=== PATIENT | male | born 1940 | race Caucasian/White ===

== ENCOUNTER 2019-10-03 05:15 | Inpatient (IN) ==
--- NOTE | 2019-09-21 13:56 | PAT Medication Instructions ---
Medication Instructions Date of Service September 21, 2019 Home Medications aspirin [Aspir-81] 81 mg PO DAILY calcium carbonate [Tums] 200 mg PO UD PRN ferrous sulfate [iron] 325 mg PO DAILY folic acid 1 mg PO DAILY omega 2-zrf-jmz-fish oil [Fish Oil] 1 cap PO DAILY STOP taking 2 weeks before surgery (or as soon as possible if surgery is within 2 weeks) omega 6-zyd-fka-fish oil [Fish Oil] 1 cap PO DAILY DO NOT take the morning of surgery calcium carbonate [Tums] 200 mg PO UD PRN ferrous sulfate [iron] 325 mg PO DAILY folic acid 1 mg PO DAILY Take morning of surgery With a small sip of water, OTHERWISE NOTHING TO EAT OR DRINK AFTER MIDNIGHT: aspirin [Aspir-81] 81 mg PO DAILY Other Notes If you have any questions please call us at [phone] or [phone] or [phone] or [phone]
--- NOTE | 2019-09-22 08:20 | History & Physical Report ---
Date of Service September 22, 2019 date of surgery: 10-03-19 Assessment & Plan (1) Arthritis of knee, left: Risks and benefits of procedure discussed in detail today, patient would like to proceed with a Left total knee replacement at [facility] as scheduled. will obtain medical clearance from Dr Merida prior to surgery as well as obtain PATs at [facility]. Will place on ASA 81mg po bid x 1 month post op, f/u 2 weeks post op for routine post-operative care and x-ray, sooner if having any problems. will make arrangements for OPPT at the time of discharge. At this point in time, has failed conservative measures and would like to proceed with surgical intervention. History of Present Illness Chief Complaint: left knee pain Primary Care Provider: Benjie Merida Mr Plascencia is a 79 year old male who complains of knee pain, presents for pre-op evaluation prior to a left total knee replacement at [facility]. He presents with pain and stiffness in the left knee. He states that the symptoms have been chronic non-traumatic. The symptoms occur constantly with intermittent worsening. Currently the patient states that the symptoms are moderate-severe and is described as aching, sharp and throbbing. The symptoms occur continuously. He rates his current pain as 4/10 and worst at 7/10. The symptoms are aggravated by ascending stairs, descending stairs, daily activities, driving, exercise, first steps while awake, kneeling, movement, repetitive activities, sleeping in any position, squatting, standing, walking, weight bearing and golfing. He is also experiencing limping, nighttime awakening, pain, stiffness, tenderness and weakness. Prior NSAIDs include Aleve and Ibuprofen. He has been treated with a corticosteroid injection in the past, has had previous therapy, and he has had arthroscopic surgery. 09/01/18 Dr. Craig performed Left knee arthroscopic partial medial and lateral meniscectomies. Allergies Allergy/AdvReac Type Severity Reaction Status Date / Time Penicillins Allergy Unknown SWELLING, Verified 09/15/19 11:25 REDNESS Home Medications Home Medications Medication Instructions Recorded Confirmed Type aspirin [Aspir-81] 81 mg PO DAILY 09/15/19 09/15/19 History calcium carbonate [Tums] 200 mg PO UD PRN 09/15/19 09/15/19 History ferrous sulfate [iron] 325 mg PO DAILY 09/15/19 09/15/19 History folic acid 1 mg PO DAILY 09/15/19 09/15/19 History omega 3-wno-sil-fish oil [Fish Oil] 1 cap PO DAILY 09/15/19 09/15/19 History Past Med/Surg History Medical History Acid reflux DIETARY DEPENDENT SOB (shortness of breath) on exertion Surgical History History of arthroscopy of knee X2 History of cardiac cath >15 YR AGO, D/T FAMILY HX - NO FINDINGS History of carpal tunnel surgery ? History of cervical spinal surgery History of colonoscopy History of eye surgery BILAT History of foot surgery R History of left shoulder replacement History of lumbar fusion History of right shoulder replacement History of thumb surgery History of transurethral resection of prostate X2 Family History Father Family history of cancer Family history of diabetes mellitus Family history of [place] (myocardial infarction) Father No problems noted. 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: No Beliefs That Will Affect Care: Buddhist Buddhist Beliefs: RASTAFARIAN Current Living Situation: Spouse Other Information That Helps Us Care for You: No Feels Safe at Home: Yes Smoking Status: Former smoker Tobacco Type: cigarettes and pipe ; Do You Dip or Chew Tobacco: No (HX OF, NONE CURRENT) ; Smoking End Date: 30 YRS AGO PIPE, 50 YRS AGO CIGARETTES ; Hx Alcohol Use: Yes Alcohol type: beer and wine Hx Substance Use: No Review of Systems Review of Systems: All systems reviewed & are unremarkable except as noted in HPI & below Constitutional: no fever, no chills and no sweats Respiratory: no cough and no dyspnea Cardiovascular: no chest pain, no dyspnea and no orthopnea Gastrointestinal: no abdominal pain, no nausea and no vomiting Musculoskeletal: as per Subjective / HPI Physical Exam Physical Exam: Ht: 5ft 7in Wt: 83.9kg BP: 126/66 Pulse: 72 Constitutional: WD/WN, vitals as above no acute distress Respiratory: normal respiratory effort, lungs clear to auscultation no respiratory distress, no labored breathing and does not use accessory muscles Cardiovascular: RRR, no murmur, no edema Gastrointestinal (Abdomen): normal bowel sounds, soft, nontender, no hepatosplenomegaly Musculoskeletal: Knee: + knee abnormal to inspection (left knee- ), + effusion (+1 effusion), + surgical incision (well healed portals), + limited ROM of knee (ROM 0/3/110), + knee ROM with crepitation, + joint line tenderness (medial joint line) and + Jackeline's sign positive; no deformity, no skin erythema, no ecchymosis, no valgus laxity, no varus laxity, anterior drawer test negative, Diego's sign negative and pivot shift test negative Results & Data Diagnostic Findings Left Knee X-rays shows degenerative changes to the left knee, greatest medial compartments and patellofemoral joint, showing joint space narrowing, osteophyte formation and subchondral sclerosis. no acute bony pathology noted.
--- NOTE | 2019-09-22 11:23 | Anesthesiology Consultation ---
Date of Service September 22, 2019 Assessment & Plan (1) Encounter for pre-operative examination: Chart Review Chart Review: Acceptable Risk for Surgery (pending surgeon-ordered PCP preop evaluation scheduled 09/26 (Dr. Merida)) and Patient seen in Pre Admission Testing Teaching & Discussion Pre-Anesthesia Teaching/Discussion Notes: Instructed NPO after midnight before surgery,except medications with 15 cc of water. Medication instructions pr ovided according to the PAT guidelines. History Surgery Operation Date: 10/03/19 12:55 Proposed Procedures p Left Total Knee Arthroplasty - Carlitos Weathers DO *Surgery date being changed to 10/03 per patient* Height/Weight Height: 5 ft 7 in Weight: 86.2 kg Allergies Allergy/AdvReac Type Severity Reaction Status Date / Time Penicillins Allergy Unknown SWELLING, Verified 09/15/19 11:25 REDNESS Medications Home Medications Medication Instructions Recorded Confirmed Last Taken aspirin [Aspir-81] 81 mg PO DAILY 09/15/19 09/15/19 Unknown calcium carbonate [Tums] 200 mg PO UD PRN 09/15/19 09/15/19 Unknown ferrous sulfate [iron] 325 mg PO DAILY 09/15/19 09/15/19 Unknown folic acid 1 mg PO DAILY 09/15/19 09/15/19 Unknown omega 0-sde-boy-fish oil [Fish Oil] 1 cap PO DAILY 09/15/19 09/15/19 Unknown Past Medical History Medical History Acid reflux diet related Anemia chronic; with baseline hgb in the 11-13 range per chart review Arthritis Hard of hearing Exercise / Class Metabolic Activity II 4-5 Yardwork/Stairs/Walk up hill Past Family History Family History Father Family history of cancer Family history of diabetes mellitus Family history of [place] (myocardial infarction) Father No problems noted. Brother Family history of cancer Family history of [place] (myocardial infarction) Mother Family history of stroke Past Surgical History Surgical History History of arthroscopy of knee LEFT X2 History of cardiac cath >15 YR AGO (D/T FAMILY HX)= NO STENTS History of carpal tunnel surgery UNSURE WHICH SIDE History of cervical spinal surgery History of colonoscopy History of eye surgery BILAT History of foot surgery R History of left shoulder replacement History of lumbar fusion History of right shoulder replacement History of thumb surgery History of transurethral resection of prostate X2 Past Anesthesia History No Hx of Anesthesia Complications and No Family Hx of Anesthesia Complications History of PONV No Hx of PONV and No Hx of Motion Sickness Social History Smoking Status: Former smoker tobacco type: cigarettes and pipe Do You Dip or Chew Tobacco: No (HX OF, NONE X 17 YEARS) Smoking End Date: 30 YRS AGO PIPE, 50 YRS AGO CIGARETTES Hx Alcohol Use: Yes Alcohol type: beer and wine alcohol intake frequency: 3 or more drinks per day (varies from day to day (zero to at most 6 beers/day);no morning/daytime drinking per patient*) Hx Substance Use: No substance use type: does not use Review of Systems Diet controlled reflux. Patient denies chest pain, shortness of breath, dyspnea on exertion, cough, wheezing, palpitations. Physical Exam Vital Signs VITALS BP 122/74 P 55 TEMP 98.2 SP02 95%RA RESP 16 PHYSICAL Mildly decreased cervical extension Full TMJ range of motion. TMD 3 finger breaths Mallampati Score 2 Dentition: intact, implants including upper front/molars Lungs: clear throughout to auscultation Cardiac: regular rate and rhythm, no murmurs noted Spine: normal Carotid arteries: negative bruit Extremities: no edema Testing Laboratory Results 09/22/19 11:41 09/22/19 11:41 PT 10.7 Seconds (9.0-12.0) 09/22/19 11:41 INR 1.0 (0.9-1.1) 09/22/19 11:41 APTT 28.3 Seconds (21.0-31.0) 09/22/19 11:41 Hemoglobin A1c 5.9 % (4.5-5.6) H 09/22/19 11:41 Urine Color Yellow 09/22/19 11:41 Urine Appearance Cloudy (Clear) A 09/22/19 11:41 Urine pH 8.0 (4.5-7.5) H 09/22/19 11:41 Ur Specific [place] 1.019 (1.000-1.030) 09/22/19 11:41 Urine Protein Negative (Negative) 09/22/19 11:41 Urine Glucose (UA) Negative (Negative) 09/22/19 11:41 Urine Ketones Negative (Negative) 09/22/19 11:41 Urine Nitrite Negative (Negative) 09/22/19 11:41 Ur Leukocyte Esterase Negative (Negative) 09/22/19 11:41 Urine WBC (Auto) 0 /hpf (0-5) 09/22/19 11:41 Urine RBC (Auto) 0-4 /hpf (0-4) 09/22/19 11:41 U Hyaline Cast (Auto) 0 /lpf (0-5) 09/22/19 11:41 U Epithel Cells (Auto) 0-5 /lpf (0-5) 09/22/19 11:41 Urine Bacteria (Auto) Negative (Negative) 09/22/19 11:41 Blood Type A Positive 09/22/19 11:41 Antibody Screen NEGATIVE 09/22/19 11:41 *Surgeon office made aware of low WBC/report being forwarded to PCP* Electrocardiogram Date: 09/22/19 SB at 52bpm. Otherwise "normal" ECG. Isolated lead III TWI. NS TWA AVF. Chest X-Ray Date: 09/22/19 Lung volumes are normal. Lungs are clear. There is no pneumothorax or pleural effusion. Cardiac size is at the upper limits of normal. Mediastinal contours are normal. There is no evidence for pulmonary edema. Bilateral shoulder arth roplasties and lumbar spine fusion hardware is partially imaged. IMPRESSION: No acute cardiopulmonary findings.
--- NOTE | 2019-09-22 12:08 | XRay Report ---
XR chest Pre-admission PA/Lat CLINICAL HISTORY: Preoperative evaluation. COMPARISON STUDY: Chest radiograph September 30, 2012. FINDINGS: Lung volumes are normal. Lungs are clear. There is no pneumothorax or pleural effusion. Car diac size is at the upper limits of normal. Mediastinal contours are normal. There is no evidence for pulmonary edema. Bilateral shoulder arthroplasties and lumbar spine fusion hardware is partially yadira ged. IMPRESSION: No acute cardiopulmonary findings. ACT 112: Negative or not required by law. Electronically signed by: Antonio Brooks M.D. 09/22/2019 12:07 PM
[2019-09-22 12:54] LABS: Basophils # (auto) 0.02 K/uL (0-0.2); Basophils % (auto) 0.5 %; Eosinophils # (auto) 0.46 K/uL (0-0.5); Eosinophils % (auto) 11.8 %; Hematocrit (blood only) 38.7 % (42-52); Hemoglobin 12.5 g/dL (14.0-18.0); Immature Granulocytes # (auto) 0.01 K/uL (0.00-0.02); Immature Granulocytes % (auto) 0.3 %; Lymphocytes % (auto) 38.5 %; Mean Corpuscular Hemoglobin 31.3 pg (25-34); Mean Corpuscular Hgb Conc 32.3 g/dL (32-36); Mean Corpuscular Volume 96.8 fL (80-100); Mean Platelet Volume 10.9 fL (7.4-10.4); Monocytes # (auto) 0.34 K/uL (0.11-0.59); Monocytes % (auto) 8.7 %; Neutrophils # (auto) 1.57 K/uL (1.4-6.5); Neutrophils % (auto) 40.2 %; Platelet Count 222 K/uL (130-400); RDW Coefficient of Variation 13.7 % (11.5-14.5)
[2019-09-22 12:58] LABS: Appearance Urine Cloudy (Clear); Bacteria Urine Automated Negative (Negative); Bilirubin Urine Negative (Negative); Blood Urine Negative (Negative); Cast Urine Automated 0 /lpf (0-5); Color Urine Yellow; Epithelial Cell Urine Auto 0-5 /lpf (0-5); Glucose Urine UA Negative (Negative); Ketones Urine Negative (Negative); Leukocyte Esterase Urine Negative (Negative); Nitrite Urine Negative (Negative); Protein Urine Negative (Negative); RBC Urine Automated 0-4 /hpf (0-4); Specific Gravity Urine 1.019 (1.000-1.030); Urobilinogen Urine Negative (Negative); WBC Urine Automated 0 /hpf (0-5)
[2019-09-22 13:01] LABS: Albumin Level 3.3 gm/dl (3.4-5.0); BUN Creatinine Ratio 25.5 (10-20); Calcium 8.9 mg/dl (8.5-10.1); Creatinine Clr Calc Pharmacy 84.6 ml/min; Est GFR (African American) 101.5; Est GFR (Non-African American) 87.6; Potassium 4.3 mmol/L (3.5-5.1)
[2019-09-22 13:05] LABS: Partial Thromboplastin Time 28.3 Seconds (21.0-31.0); Prothrombin Time 10.7 Seconds (9.0-12.0)
[2019-09-22 13:09] LABS: Estimated Average Glucose 123 mg/dl; Hemoglobin A1C 5.9 % (4.5-5.6)
--- NOTE | 2019-09-23 07:44 | Electrocardiogram Report ---
Test Reason : Blood Pressure : / mmHG Vent. Rate : 052 BPM Atrial Rate : 052 BPM P-R Int : 168 ms QRS Dur : 078 ms QT Int : 464 ms P-R-T Axes : 053 -08 -14 degrees QTc Int : 431 ms Sinus bradycardia Otherwise normal ECG When compared with ECG of 30-SEP-2012 16:31, T wave inversion now evident in Inferior leads Confirmed by Adrian Hirsch ([id number]) on 09/23/2019 7:43:50 AM Referred By: Carlitos Weathers Confirmed By:Fredy Hirsch
[2019-10-03] MEDS ORDERED: ACETAMINOPHEN 500 MG TAB PO SCH (06:00)
[2019-10-03] MEDS ORDERED: FAMOTIDINE 20 MG TAB PO SCH (06:00)
[2019-10-03] MEDS ORDERED: VANCOMYCIN HCL 1,250 MG in SODIUM CHLORIDE 0.9% 250 ML IV SCH (06:00)
[2019-10-03] MEDS ORDERED: dexAMETHasone 4 MG TAB PO SCH (06:00)
[2019-10-03] MEDS ORDERED: LR 500ML BOLUS, THEN 15ML/HR IV SCH (06:00)
[2019-10-03] MEDS ORDERED: TRANEXAMIC ACID 1,000 MG **IV Pre-op IV SCH (06:00)
[2019-10-03] MEDS ORDERED: METOCLOPRAMIDE HCL 10 MG TABLET PO SCH (06:00)
[2019-10-03] MEDS ORDERED: ROPIVACAINE 0.5% HCL/PF 150 MG, BUPIVACAINE 0.5% MPF 30 ML, EPINEPHrine 30MG/30ML (OR U... INFIL SCH (06:00)
[2019-10-03] MEDS ORDERED: CeleBREX 200 MG CAP PO SCH (06:00)
[2019-10-03] MEDS ORDERED: TRANEXAMIC ACID 1,000 MG **IV Intra-op IV SCH (06:00)
[2019-10-03] MEDS ORDERED: GABAPENTIN 300 MG CAP PO SCH (06:00)
[2019-10-03] MEDS ORDERED: BUPIVACAINE 0.5 % 5 MG/1 ML PF 10ML VIAL ONE (06:19)
[2019-10-03] MEDS ORDERED: ROPIVACAINE 0.5% 5 MG/ML 30 ML VIAL ONE (06:19)
[2019-10-03] MEDS ORDERED: DEXAMETHASONE SOD INJ 4 MG/ML VIAL ONE (06:51)
[2019-10-03] MEDS ORDERED: ONDANSETRON INJ 2 MG/ML 2 ML VIAL ONE (06:51)
[2019-10-03] MEDS ORDERED: fentaNYL citrate 100 MCG/2 ML VIAL ONE (06:51)
[2019-10-03] MEDS ORDERED: LIDOCAINE HCL 2% 2 ML VIAL/AMP(20MG/ML) INFIL ONE (06:51)
[2019-10-03] MEDS ORDERED: PROPOFOL IV EMULSION 10 MG/ML 20 ML VIAL IV ONE ×2 (06:51→08:58)
[2019-10-03] MEDS ORDERED: MIDAZOLAM HCL 1 MG/ML 2ML VIAL ONE (06:52)
[2019-10-03] MEDS ORDERED: BACITRACIN INJ 50,000 UNIT VIAL ONE (07:06)
[2019-10-03] MEDS ORDERED: ORTHO JOINT ANESTHETIC ONE (07:06)
--- NOTE | 2019-10-03 07:34 | History & Physical Bridge Note ---
Date of Service October 03, 2019 History & Physical Bridge Note I have examined the patient, reviewed the History & Physical and in the interval since the performance of the History & Physical I have noted the following changes of clinical significance: no changes noted
[2019-10-03] MEDS ORDERED: ePHEDrine sulfate 50 MG/ML AMP IV PRN (07:38)
[2019-10-03] MEDS ORDERED: ATROPINE SULFATE 0.1 MG/ML 10ML SYR IV PRN (07:38)
--- NOTE | 2019-10-03 08:45 | Operative Report ---
Post Operative Report Pre & Post Diagnosis Operation Date: 10/03/19 07:15 Pre-Op Diagnosis: LEFT KNEE OSTEOARTHRITIS Post-Op Diagnosis: LEFT KNEE OSTEOARTHRITIS I identified the patient and participated in the time-out.: Yes Procedure Operation Date: 10/03/19 07:15 Actual Procedures p Left Total Knee Arthroplasty(Left) utilizing [employer] journey through an en bloc total knee arthroplasty size 7 femur 6 tibia 9 polyethylene 35 oval patella- Carlitos Weathers DO Surgeon Carlitos Weathers DO [employer] Prospect[employer] [place] Estimated Blood Loss 5 Findings Consistent with Post-Op Diagnosis Patient presents with severe end-stage degenerative joint disease of the left knee nonresponse to conservative management clinic physical therapy anti- inflammatories activity modification intraoperative as noted was consistent with eburnated [id number] marginal osteophytes moderate to large effusion subchondral cystic changes exist without a fragment degenerative joint disease Specimens Bone and cartilage Drains Median bar Hemovac Complications none Disposition Accompanied Patient To Recovery: No Indications Patient presents severe in stage tricompartmental degenerative joint disease l eft knee Halfway X are to manage including physical therapy anti- inflammatories relative rest activity modification corticosteroid injections Visco supplementation patient presents the above intraoperative findings are noted. Description of Procedure After proper identification of the patientAfter proper prepping and draping of the left lower extremity anterior midline incision was made over the region of the extensor extensor mechanism after meticulous hemostasis was obtained and maintained in subcutaneous tissues a medial parapatellar incision was made The patella was subluxed lateralward the medial lateral gutter were cleaned from any hypertrophic synovitis and scar tissue of the distal femoral block was placed and the distal femoral osteotomy cut was made subsequently the chamfers anterior and posterior osteotomy cuts were made utilizing the 4-in-1 block the tibia was subsequently subluxed anteriorward medial and ateral meniscal remnants were excised in their entirety remnants of the anterior and posterior cruciate ligaments were excised in their entirety excellent exposure of the proximal tibia was obtained the tibial osteotomy guide was placed on the proximal tibial osteotomy cut was made once again the knee was irrigated with copious amounts of sterile saline solution the patella was subsequently everted lateralward thickened scar tissue around the patella was removed the patella was subsequently cut utilizing a freehand technique and was drilled prepared for final preparation and placement of patella socially flexion-extension gaps were checked and the equal and symmetric trials were placed to the appropriate femoral and tibial trials with poly-spacer being placed for equal flexion and extension gaps and full range of motion including extension to 0 and flexion to 140 the trial components after having been taken to recovery range of motion was subsequently removed meticulous hemostasis was obtained and maintained subsequently a knee block injection of joint cocktail including ropivacaine 0.5% 150 mg. Bupivacaine 0.5% epinephrine 1-200,030 mL's toradol 30 mg dexamethasone 4 mg ketamine 10 mg clonidine 100 micrograms normal saline solution 30 mg was infiltrated into the soft tissues of the posterior knee medial lateral gutters and periosteal synovium special attention was paid to protect neurovascular structures at all times subsequently trial components having been removed the knee was irrigated with sterile saline solution. debris was removed the proximal tibia was subsequently prepared and was made ready for the placement of the tibial component tibial component was also cemented and tamped into position the femoral component was subsequently placed and cemented in the position the patellar component was subsequently cemented in position because hemostasis once again obtained and maintained wound having been thoroughly irrigated with debridement and debridement lavage was performed as well as a medial parapatellar incision closed with #1 Vicryl in interrupted fashion subcutaneous was closed with #2 Vicryl skin was closed with skin clips. PA-C was necessary for prepping and drapping as well as wound closure of deep fascia Sub cutaneous tissue and skin and was necessary for the case. A sterile compressive dressing was placed patient was taken to recovery in stable condition of report dictated by Jasiel I attest to the content of the Intraoperative Record and any orders documented therein. Any exceptions are noted below. I attest to the content of the Intraoperative Record and any orders documented therein. Any exceptions are noted below.
--- NOTE | 2019-10-03 10:02 | XRay Report ---
XR knee LT 1 or 2V routine CLINICAL HISTORY: 79 years-old Male presenting with Surgical Post Op. TECHNIQUE: Frontal and crosstable lateral views of the left knee were obtained. COMPARISON: None. FINDINGS: Postsurgical changes of total left knee arthroplasty with patellar resurfacing. A surgical drain is i n place. Expected intra-articular and soft tissue emphysema. No malalignment. No periprosthetic fract ure or lucency. IMPRESSION: Expected postsurgical appearance status post total left knee arthroplasty with patellar resurfacing. ACT 112: Negative or not required by law. Electronically signed by: Barry Tierney M.D. 10/03/2019 10:01 AM
--- NOTE | 2019-10-03 11:39 | Anesthesiology Progress Note ---
Date of Service October 03, 2019 Anesthesia Post Procedure Vital Signs Vital Signs: Temp Pulse Pulse Resp BP Pulse Ox 10/03/19 11:20 36.6 C 51 L 13 134/77 99 10/03/19 11:10 36.6 C 50 L 12 125/79 99 10/03/19 11:00 52 L 12 122/75 99 10/03/19 10:50 50 L 12 119/79 99 10/03/19 10:40 61 13 128/77 100 10/03/19 10:30 61 13 124/81 99 10/03/19 10:20 49 L 16 121/74 100 10/03/19 10:10 55 L 12 126/72 99 10/03/19 10:00 63 13 125/81 99 10/03/19 09:50 62 16 126/81 97 10/03/19 09:40 59 L 19 127/71 100 10/03/19 09:33 36.5 C 67 18 120/67 100 10/03/19 05:53 37.1 C 59 L 18 128/78 97 Transfer of Care Handoff Completed per policy Notes Mental Status: alert / awake / arousable and participated in evaluation Patient Amnestic to Procedure: Yes Nausea / Vomiting: adequately controlled Pain: adequately controlled Airway Patency, RR, SpO2: stable & adequate BP & HR: stable & adequate Hydration State: stable & adequate Neuraxial Anesthesia: was administered and sensory block is resolving Anesthetic Complications: no major complications apparent
[2019-10-03] MEDS ORDERED: bisacodyL 10 MG SUPP PR PRN (11:45)
[2019-10-03] MEDS ORDERED: CALCIUM CARBONATE 500 MG CHEWABLE TAB PO PRN (11:45)
[2019-10-03] MEDS ORDERED: NALOXONE HCL 0.4 MG/1 ML VIAL/CARP IV PRN (11:45)
[2019-10-03] MEDS ORDERED: HYDROmorphone INJ 1 MG/ML SYRINGE IV PRN (11:45)
[2019-10-03] MEDS ORDERED: ALUMINUM/MAGNESIUM SUSP 30 ML UDC PO PRN (11:45)
[2019-10-03] MEDS ORDERED: METOCLOPRAMIDE HCL INJ 5 MG/ML 2 ML VIAL IV PRN (11:45)
[2019-10-03] MEDS ORDERED: MAGNESIUM HYDROXIDE SUSP 30 ML UDC PO PRN (11:45)
[2019-10-03] MEDS ORDERED: SODIUM CHLORIDE 0.9% 1000ML 1,000 ML IV SCH (11:45)
[2019-10-03] MEDS ORDERED: ONDANSETRON INJ 2 MG/ML 2 ML VIAL IV PRN (11:45)
[2019-10-03] MEDS: ACETAMINOPHEN 500 MG TAB PO SCH ×2 (13:14→20:52)
[2019-10-03] MEDS: KETOROLAC TROMETHAMINE 15 MG/ML VIAL IV SCH ×2 (13:14→20:51)
[2019-10-03] MEDS: CLINDAMYCIN 600 MG in DEXTROSE 5% 50 ML IV SCH ×2 (15:38→23:31)
[2019-10-03] MEDS: ASPIRIN 81 MG ECTAB PO SCH (20:52)
[2019-10-03] MEDS: SENNA 8.6 MG TAB PO SCH (20:53)
[2019-10-03] MEDS: DOCUSATE SODIUM 100 MG CAP PO SCH (20:53)
[2019-10-04] MEDS: KETOROLAC TROMETHAMINE 15 MG/ML VIAL IV SCH ×2 (01:26→09:51)
[2019-10-04] MEDS: ACETAMINOPHEN 500 MG TAB PO SCH ×3 (05:52→20:46)
[2019-10-04 06:26] LABS: Hematocrit (blood only) 34.5 % (42-52); Hemoglobin 11.3 g/dL (14.0-18.0); Mean Corpuscular Hemoglobin 31.1 pg (25-34); Mean Corpuscular Hgb Conc 32.8 g/dL (32-36); Mean Platelet Volume 10.3 fL (7.4-10.4); Platelet Count 236 K/uL (130-400); RDW Coefficient of Variation 13.1 % (11.5-14.5); RDW Standard Deviation 45.6 fL (36.4-46.3); Red Blood Count 3.63 M/uL (4.7-6.1); White Blood Count 9.59 K/uL (4.8-10.8)
[2019-10-04 06:58] LABS: BUN Creatinine Ratio 28.6 (10-20); Calcium 9.1 mg/dl (8.5-10.1); Creatinine Clr Calc Pharmacy 81.3 ml/min; Est GFR (Non-African American) 87.1; Potassium 4.5 mmol/L (3.5-5.1)
--- NOTE | 2019-10-04 07:51 | Anesthesiology Progress Note ---
Date of Service October 04, 2019 Anesthesia Post Procedure Vital Signs Vital Signs: Temp Pulse Pulse Pulse Resp BP Pulse Ox 10/04/19 07:13 36.4 C L 50 L 16 130/72 99 10/04/19 03:40 36.5 C 48 L 16 124/57 L 97 10/03/19 22:52 36.5 C 57 L 16 106/68 99 10/03/19 20:50 36.4 C L 53 L 16 111/72 98 10/03/19 15:18 36.3 C L 58 L 16 146/84 H 97 10/03/19 14:35 36.3 C L 48 L 18 134/80 97 10/03/19 13:28 36.5 C 54 L 17 137/82 100 10/03/19 12:26 36.3 C L 46 L 17 115/73 100 10/03/19 12:00 36.4 C L 51 L 16 132/79 99 10/03/19 11:30 36.5 C 54 L 16 132/77 100 10/03/19 11:20 36.6 C 51 L 13 134/77 99 10/03/19 11:10 36.6 C 50 L 12 125/79 99 10/03/19 11:00 52 L 12 122/75 99 10/03/19 10:50 50 L 12 119/79 99 10/03/19 10:40 61 13 128/77 100 10/03/19 10:30 61 13 124/81 99 10/03/19 10:20 49 L 16 121/74 100 10/03/19 10:10 55 L 12 126/72 99 10/03/19 10:00 63 13 125/81 99 10/03/19 09:50 62 16 126/81 97 10/03/19 09:40 59 L 19 127/71 100 10/03/19 09:33 36.5 C 67 18 120/67 100 Notes Mental Status: alert / awake / arousable and participated in evaluation Patient Amnestic to Procedure: Yes Nausea / Vomiting: adequately controlled Pain: adequately controlled Airway Patency, RR, SpO2: stable & adequate BP & HR: stable & adequate Hydration State: stable & adequate Neuraxial Anesthesia: was administered and sensory block resolved Anesthetic Complications: no major complications apparent
[2019-10-04] MEDS: FERROUS SULFATE 325 MG TAB PO SCH (09:52)
[2019-10-04] MEDS: MULTIVITAMIN TAB PO SCH (09:52)
[2019-10-04] MEDS: DOCUSATE SODIUM 100 MG CAP PO SCH ×2 (09:52→20:45)
[2019-10-04] MEDS: ASPIRIN 81 MG ECTAB PO SCH ×2 (09:52→20:45)
[2019-10-04] MEDS: FOLIC ACID 1 MG TAB PO SCH (09:52)
--- NOTE | 2019-10-04 09:53 | Orthopedic Progress Note ---
Date of Service October 04, 2019 Assessment & Plan (1) History of total left knee replacement: POD #1 s/p Left TKA pt/ot dvt proph with SUPRIYA/SCD/ASA plan for d/c home with OPPT, will recheck after PT Today, hemovac last drained at 125cc/8 hr Subjective POD #1 s/p Left TKA Review of Systems Constitutional: no fever, no chills and no sweats Respiratory: no cough and no dyspnea Cardiovascular: no chest pain and no dyspnea Gastrointestinal: no abdominal pain, no nausea and no vomiting Physical Exam Physical Exam: Vital Signs Temp 36.4 C L 10/04/19 07:13 Pulse 50 L 10/04/19 07:13 Resp 16 10/04/19 07:13 BP 130/72 10/04/19 07:13 Pulse Ox 99 10/04/19 07:13 Intake & Output 10/03/19 10/04/19 10/04/19 18:59 06:59 18:59 Intake Total 2729 / 3524.667 795.667 / 3524.667 Output Total 991 / 1391 400 / 1391 Balance 1738 / 2133.667 395.667 / 2133.667 Weight 84.8 kg Intake: IV 1229 / 2024.667 795.667 / 2024.667 Cleocin 600 mg In D5w 50 ml @ 54 / 108 54 / 108 100 mls/hr IV Q8H KATHERINE Rx#: [id number] Lr 1,000 ml @ 15 mls/hr IV . 700 / 700 Q24H KATHERINE Rx#:[id number] Nss 1000ML 1,0 00 ml @ 100 mls/ 741.667 / 741.667 hr IV .Q10H SC H Rx#:[id number] TRANEXAMIC ACI D / 0.7% NACL 1, 200 / 200 000 mg In 100 ml @ 600 mls/hr IV TODAY@0600 [facility] Rx#:[id number] Vancomycin HCl 1,250 mg In Nss 275 / 275 250 ml @ 250 m ls/hr IV PREOP KATHERINE Rx#:[id number] IV Perioperative 1500 / 1500 Output: Urine 950 / 950 Estimated Blood Loss 5 / 5 Drain Output 36 / 436 400 / 436 Left Knee Hemo vac #1 36 / 436 400 / 436 Other: # Unmeasured Voi ds 1 2 Constitutional: WD/WN, vitals as above no acute distress Musculoskeletal: Left Leg: NVDI, calf SNT, negative bigg sign. DP palpable, able to wiggle toes/ankle movement without difficulty. dressing clean dry and intact. Results & Data Vital Signs (Past 12 Hours) Vital Signs Temp Pulse Resp BP Pulse Ox 10/04/19 07:13 36.4 C L 50 L 16 130/72 99 10/04/19 03:40 36.5 C 48 L 16 124/57 L 97 10/03/19 22:52 36.5 C 57 L 16 106/68 99 Laboratory Results Laboratory Results WBC 9.59 K/uL (4.8-10.8) 10/04/19 05:46 RBC 3.63 M/uL (4.7-6.1) L 10/04/19 05:46 Hgb 11.3 g/dL (14.0-18.0) L 10/04/19 05:46 Hct 34.5 % (42-52) L 10/04/19 05:46 MCV 95.0 fL (80-100) 10/04/19 05:46 MCH 31.1 pg (25-34) 10/04/19 05:46 MCHC 32.8 g/dL (32-36) 10/04/19 05:46 RDW Std Deviation 45.6 fL (36.4-46.3) 10/04/19 05:46 RDW Coeff of Brenda 13.1 % (11.5-14.5) 10/04/19 05:46 Plt Count 236 K/uL (130-400) 10/04/19 05:46 MPV 10.3 fL (7.4-10.4) 10/04/19 05:46 Immature Gran % (Auto) 0.3 % 09/22/19 11:41 Neut % (Auto) 40.2 % 09/22/19 11:41 Lymph % (Auto) 38.5 % 09/22/19 11:41 [place] % (Auto) 8.7 % 09/22/19 11:41 Eos % (Auto) 11.8 % 09/22/19 11:41 Baso % (Auto) 0.5 % 09/22/19 11:41 Immature Gran # (Auto) 0.01 K/uL (0.00-0.02) 09/22/19 11:41 Neut # (Auto) 1.57 K/uL (1.4-6.5) 09/22/19 11:41 Lymph # (Auto) 1.50 K/uL (1.2-3.4) 09/22/19 11:41 [place] # (Auto) 0.34 K/uL (0.11-0.59) 09/22/19 11:41 Eos # (Auto) 0.46 K/uL (0-0.5) 09/22/19 11:41 Baso # (Auto) 0.02 K/uL (0-0.2) 09/22/19 11:41 PT 10.7 Seconds (9.0-12.0) 09/22/19 11:41 INR 1.0 (0.9-1.1) 09/22/19 11:41 APTT 28.3 Seconds (21.0-31.0) 09/22/19 11:41 PTT Ratio 1.0 09/22/19 11:41 Sodium 139 mmol/L (136-145) 10/04/19 05:46 Potassium 4.5 mmol/L (3.5-5.1) 10/04/19 05:46 Chloride 107 mmol/L (98-107) 10/04/19 05:46 Carbon Dioxide 29 mmol/L (21-32) 10/04/19 05:46 Anion Gap 3.0 (3-11) 10/04/19 05:46 BUN 21 mg/dl (7-18) H 10/04/19 05:46 Creatinine 0.74 mg/dl (0.6-1.4) 10/04/19 05:46 Est Cr Clr Drug Dosing 81.3 ml/min 10/04/19 05:46 Est GFR ( Amer) 101.0 10/04/19 05:46 Est GFR (Non-Af Amer) 87.1 10/04/19 05:46 BUN/Creatinine Ratio 28.6 (10-20) H 10/04/19 05:46 Glucose 131 mg/dl (70-99) H 10/04/19 05:46 Estimat Average Glucose 123 mg/dl 09/22/19 11:41 Hemoglobin A1c 5.9 % (4.5-5.6) H 09/22/19 11:41 Calcium 9.1 mg/dl (8.5-10.1) 10/04/19 05:46 Albumin 3.3 gm/dl (3.4-5.0) L 09/22/19 11:41 Urine Color Yellow 09/22/19 11:41 Urine Appearance Cloudy (Clear) A 09/22/19 11:41 Urine pH 8.0 (4.5-7.5) H 09/22/19 11:41 Ur Specific [place] 1.019 (1.000-1.030) 09/22/19 11:41 Urine Protein Negative (Negative) 09/22/19 11:41 Urine Glucose (UA) Negative (Negative) 09/22/19 11:41 Urine Ketones Negative (Negative) 09/22/19 11:41 Urine Blood Negative (Negative) 09/22/19 11:41 Urine Nitrite Negative (Negative) 09/22/19 11:41 Urine Bilirubin Negative (Negative) 09/22/19 11:41 Urine Urobilinogen Negative (Negative) 09/22/19 11:41 Ur Leukocyte Esterase Negative (Negative) 09/22/19 11:41 Urine WBC (Auto) 0 /hpf (0-5) 09/22/19 11:41 Urine RBC (Auto) 0-4 /hpf (0-4) 09/22/19 11:41 U Hyaline Cast (Auto) 0 /lpf (0-5) 09/22/19 11:41 U Epithel Cells (Auto) 0-5 /lpf (0-5) 09/22/19 11:41 Urine Bacteria (Auto) Negative (Negative) 09/22/19 11:41 Blood Type A Positive 09/22/19 11:41 Antibody Screen NEGATIVE 09/22/19 11:41 Diagnostic Findings XR knee LT 1 or 2V routine CLINICAL HISTORY: 79 years-old Male presenting with Surgical Post Op. TECHNIQUE: Frontal and crosstable lateral views of the left knee were obtained. COMPARISON: None. FINDINGS: Postsurgical changes of total left knee arthroplasty with patellar resurfacing. A surgical drain is in place. Expected intra-articular and soft tissue emphysema. No malalignment. No periprosthetic fracture or lucency. IMPRESSION: Expected postsurgical appearance status post total left knee arthroplasty with patellar resurfacing.
[2019-10-04] MEDS: SENNA 8.6 MG TAB PO SCH (20:45)
[2019-10-04] MEDS: CeleBREX 200 MG CAP PO SCH (20:45)
[2019-10-05] MEDS: OXYCODONE HCL IR 5 MG TAB (IMMEDIATE RELEASE) PO PRN ×2 (00:49→07:54)
[2019-10-05] MEDS: ACETAMINOPHEN 500 MG TAB PO SCH (05:46)
[2019-10-05] MEDS: CeleBREX 200 MG CAP PO SCH (08:47)
[2019-10-05] MEDS: DOCUSATE SODIUM 100 MG CAP PO SCH (08:47)
[2019-10-05] MEDS: MULTIVITAMIN TAB PO SCH (08:47)
[2019-10-05] MEDS: FOLIC ACID 1 MG TAB PO SCH (08:47)
[2019-10-05] MEDS: FERROUS SULFATE 325 MG TAB PO SCH (08:47)
[2019-10-05] MEDS: ASPIRIN 81 MG ECTAB PO SCH (08:47)
--- NOTE | 2019-10-05 09:33 | Orthopedic Progress Note ---
Date of Service October 05, 2019 Assessment & Plan (1) History of total left knee replacement: POD #2 s/p Left TKA pt/ot dvt proph with SUPRIYA/SCD/ASA plan for d/c home with OPPT today Subjective POD #1 s/p Left TKA. Doing well, wishes to go home today. No complaints. Pain controlled Review of Systems Review of Systems: All systems reviewed & are unremarkable except as noted in HPI & below Physical Exam Physical Exam: Dressing is c/d/i, no calf tenderness, good dorsiflexion. Distally n/v status and sensation intact. Dressing to hemovac site intact. Results & Data Vital Signs (Past 12 Hours) Vital Signs Temp Pulse Resp BP Pulse Ox 10/05/19 07:29 36.4 C L 64 16 150/69 H 97 10/04/19 23:16 36.9 C 63 16 114/70 100
--- NOTE | 2019-10-05 18:46 | Discharge Summary ---
Date of Service date of discharge: October 05, 2019 date of admission: 10-03-19 Admission HPI Per Admitting Provider Mr Plascencia is a 79 year old male who complains of knee pain, presents for pre-op evaluation prior to a left total knee replacement at [facility]. He presents with pain and stiffness in the left knee. He states that the symptoms have been chronic non-traumatic. The symptoms occur constantly with intermittent worsening. Currently the patient states that the symptoms are moderate-severe and is described as aching, sharp and throbbing. The symptoms occur continuously. He rates his current pain as 4/10 and worst at 7/10. The symptoms are aggravated by ascending stairs, descending stairs, daily activities, driving, exercise, first steps while awake, kneeling, movement, repetitive activities, sleeping in any position, squatting, standing, walking, weight bearing and golfing. He is also experiencing limping, nighttime awakening, pain, stiffness, tenderness and weakness. Prior NSAIDs include Aleve and Ibuprofen. He has been treated with a corticosteroid injection in the past, has had previous therapy, and he has had arthroscopic surgery. 09/01/18 Dr. Craig performed Left knee arthroscopic partial medial and lateral meniscectomies. Principal Diagnosis left knee arthritis Discharge Exam Vital Signs Temp 36.4 C L 10/05/19 07:29 Pulse 64 10/05/19 07:29 Resp 16 10/05/19 07:29 BP 150/69 H 10/05/19 07:29 Pulse Ox 97 10/05/19 07:29 Intake & Output 10/04/19 10/05/19 10/05/19 18:59 06:59 18:59 Intake Total 275 / 625 350 / 625 Output Total 325 / 1125 800 / 1125 Balance -50 / -500 -450 / -500 Weight 84.8 kg Intake: Oral 275 / 625 350 / 625 Output: Urine 600 / 600 Drain Output 325 / 525 200 / 525 Left Knee Hemovac #1 325 / 525 200 / 525 Other: # Unmeasured Voids 2 Constitutional WD/WN, vitals as above no acute distress Musculoskeletal left knee: NVDI, calf SNT, negative bigg sign. DP palpable, able to wiggle toes/ankle movement without difficulty. dressing clean dry and intact. expected post-operative bruising noted. Discharge Data Allergies Allergy/AdvReac Type Severity Reaction Status Date / Time Penicillins Allergy Unknown SWELLING, Verified 10/03/19 05:50 REDNESS Consultations 10/03/19 11:45 Consult Case Management - Discharge Planning Routine Procedures Performed Operation Date: 10/03/19 07:15 Actual Procedures p Left Total Knee Arthroplasty(Left) - Carlitos Weathers DO Ordered Studies 10/03/19 05:00 US - OR guided needle placemen Routine Hospital Course (1) History of total left knee replacement: POD #2 s/p Left TKA pt/ot dvt proph with SUPRIYA/SCD/ASA plan for d/c home with OPPT today Total Time Total Time Spent Total Time Spent (In Minutes): 20 Total Time Includes: Examination of the Patient, Discharge Planning and Medication Reconciliation Discharge Plan Discharge Items Patient Disposition: Home - Self-Care Reason For Visit: LEFT KNEE OSTEOARTHRITIS Discharge Diagnosis: Left Total knee replacement Activity: Per Instructions section Lifting: Wait until after follow-up appointment Weightbearing: Full weightbearing and Left weightbearing Non-emergency contact: Surgeon Call non-emergency contact if: you have any medication questions, your temperature is above 101, your wound has increased redness, your wound has increased drainage and your wound pain has increased Follow-up/Referrals: Benjie Merida DO [Primary Care Provider] - Diet: Regular Addtl Attending Provider Instructions: ACTIVITY RECOMMENDATIONS: SELF CARE INSTRUCTIONS AFTER TOTAL KNEE REPLACEMENT A. You may need to continue a physical therapy program after discharge from the hospital. There are several options available to you. Your doctor will assist you in selecting the best one for you. 1. An out-patient facility 2 to 3 times a week for therapy or home therapy. 2. Continue working on all exercises taught to you in the hospital. Your goals should be to increase bending of your knee to 90 degrees and beyond and to fully straighten your knee. B. You may progress at your own pace from walking with a walker or crutches to a cane; then to no assistive devices. C. Make walking a part of your daily routine. Be up as much as comfortable with rest periods throughout the day. Rest with leg elevation is very important. Use the ice wrap frequently for the first 3-4 weeks. D. There are no restrictions on activities. You may ride in a car, shop, participate in test fixture designer and all social activities. E. Wear the long elastic stockings (SUPRIYA hose) 20 hours a day for 2 weeks after surgery. They can be removed several times a day for laundering and for a bath. F. You may shower, no tub baths until cleared by your doctor. SPECIAL CARE INSTRUCTIONS: VERY IMPORTANT TO READ AND REVIEW A. There are a few signs you need to watch for after you are home. Call [facility] if you notice any of the followin. Increased severe knee pain. Some pain is expected especially when you exercise. 2. Increased swelling in your leg or knee; pain or swelling of the calf muscle in either lower leg. 3. Any fluid drainage from the incision. 4. Shortness of breath or chest pain. B. Please call [facility] at if you have any concerns or questions about your operation or recovery. The doctor or his nurse will return your call promptly. C. You must take antibiotics before dental work, bladder, bowel or other surgery. Your doctor will provide you with a permanent care to carry describing this precaution. IMPORTANT: * REMEMBER TO TAKE ASPIRIN, 81 MG, TWICE DAILY FOR 4 WEEKS UNLESS OTHERWISE DIRECTED. THIS IS YOUR BLOOD THINNER. * HIGH RISK PATIENTS MAY BE PRESCRIBED A STRONGER BLOOD THINNER. THIS WILL BE PROVIDED AT DISCHARGE. * CALL IF INCREASED PAIN, REDNESS, DRAINAGE OR FEVER GREATER THAT 101. * WEAR SUPRIYA HOSE 20 HOURS PER DAY FOR 2 WEEKS. * DERMABOND Prineo- This is a mesh tape dressing that is covered with glue. It should remain in place until the incision is properly healed, usually 10-14 d ays. This dressing is designed to naturally slough off. You may trim the excess mesh tape as it peels off. Incision may be briefly wet in a shower. Dry immediately by blotting with a clean, dry towel. Do not bath or swim until instructed by your doctor. Do not scratch, rub, or pick at the dressing. Do not apply any topical ointments or lotions until dressing is completely removed and/or instructed by your doctor. There may be a small piece of suture material at one end of your incision. Do not pull or trim this. If it is bothersome or catching on clothing, you may cover it with a band-aid. IF INCISION IS LEAKING THROUGH DRESSING, CALL THE OFFICE . FOLLOW UP VISIT: If appointment is not already scheduled: Please call [facility] to make a follow-up appointment for 2 weeks after your surgery at . Pending Studies at Discharge: No Stand-Alone Forms: My [facility], Opioid Pain Management, Smoking Cessation Medications and DC Order Prescriptions: New celecoxib [Celebrex] 200 mg Capsule 200 mg PO BID 30 Days Qty: 60 RF: 0 aspirin [Ecotrin Low Strength] 81 mg Tablet,Delayed Release (Dr/Ec) 81 mg PO BID 30 Days Qty: 60 RF: 0 acetaminophen 500 mg Tablet 1,000 mg PO Q8 14 Days Qty: 84 RF: 0 oxycodone 5 mg Tablet 5 - 10 mg PO Q6H PRN (Reason: pain) Qty: 30 RF: 0 docusate sodium 100 mg Capsule 100 mg PO BID 10 Days Qty: 20 RF: 0 clindamycin HCl 300 mg capsule 300 mg PO TID 7 Days Qty: 21 RF: 0 Continued ferrous sulfate [iron] 325 mg (65 mg iron) Tablet 325 mg PO DAILY RF: 0 folic acid 1 mg Tablet 1 mg PO DAILY RF: 0 omega 3-qoq-ozt-fish oil [Fish Oil] 1,000 mg (120 mg-180 mg) Capsule 1 cap PO DAILY RF: 0 calcium carbonate [Tums] 200 mg calcium (500 mg) Tablet,Chewable 200 mg PO UD PRN (Reason: Acid Reflux) RF: 0 Discontinued aspirin [Aspir-81] 81 mg Tablet,Delayed Release (Dr/Ec) 81 mg PO DAILY RF: 0 Discharge Orders: Discharge Order (Routine); Ordered 10/05/19 Ordered By: King Winkler Admission Data Admit Date/Time: 10/03/19 09:47 Attending Provider: Carlitos Weathers Admit Provider: Carlitos Weathers Primary Care Provider: Benjie Merida Other Interventions: Discharge Summary Assessment (RN) Last Done: 10/05/19 10:05 DC Date/Time DO NOT enter until pt leaves facility: 10/05/19 11:32
== END 2019-10-05 11:32 | disposition home or self-care (01) | DRG 470 ==
LOC: 3E 05:15 → ASU 05:15

== ENCOUNTER 2019-12-07 07:30 | Inpatient (IN) ==
--- NOTE | 2019-12-07 10:06 | History & Physical Report ---
Date of Service December 07, 2019 date of surgery: 12-07-19 Assessment & Plan (1) History of total left knee replacement: knee aspirated today in the office and is concerning for infection, will be direct admitted to [facility] for I&D and poly exchange by Dr Arce later today. keep NPO, will obtain labs, consult ID for their recommendations. History of Present Illness Chief Complaint: left knee infection Primary Care Provider: Benjie Fall is 79 year old male presented to office today with possible left knee infection, he is s/p left total knee replacement in September 2019. he originally progressed well after his surgery, however started to develop swelling and increased pain about 1 week ago, he was seen by his PCP yesterday and labs were drawn, his WBC was 11.15, ESR of 88. was seen by dr arce earlier today and knee aspirated showing thick purulent fluid. it was recommended that patient be direct admitted to [facility] for I&D and poly exchange of his left knee. Allergies Allergy/AdvReac Type Severity Reaction Status Date / Time Penicillins Allergy Unknown SWELLING, Verified 10/03/19 05:50 REDNESS Home Medications Home Medications Medication Instructions Recorded Confirmed Type calcium carbonate [Tums] 200 mg PO UD PRN 09/15/19 10/03/19 History ferrous sulfate [iron] 325 mg PO DAILY 09/15/19 10/03/19 History folic acid 1 mg PO DAILY 09/15/19 10/03/19 History omega 9-xui-awg-fish oil [Fish Oil] 1 cap PO DAILY 09/15/19 10/03/19 History oxycodone 5 - 10 mg PO Q6H PRN #30 tab 10/04/19 Rx Past Med/Surg History Medical History Acid reflux diet related Anemia chronic; with baseline hgb in the 11-13 range per chart review Arthritis Hard of hearing Surgical History History of arthroscopy of knee LEFT X2 History of cardiac cath >15 YR AGO (D/T FAMILY HX)= NO STENTS History of carpal tunnel surgery UNSURE WHICH SIDE History of cervical spinal surgery History of colonoscopy History of eye surgery BILAT History of foot surgery R History of left shoulder replacement History of lumbar fusion History of right shoulder replacement History of thumb surgery History of transurethral resection of prostate X2 Family History Father Family history of cancer Family history of diabetes mellitus Family history of [place] (myocardial infarction) Father No problems noted. Brother Family history of cancer Family history of [place] (myocardial infarction) Mother Family history of stroke Social History Preferred Language: Italian Communication Ability: Effective Server Programmer Required: No Beliefs That Will Affect Care: Congregational Congregational Beliefs: SIKHISM marital status: Current Living Situation: Spouse Feels Safe at Home: Yes Smoking Status: Former smoker Tobacco Type: cigarettes and pipe ; Hx Alcohol Use: Yes Alcohol type: beer and wine Hx Substance Use: No Review of Systems Review of Systems: All systems reviewed & are unremarkable except as noted in HPI & below Constitutional: no body aches and no fatigue Respiratory: no cough and no dyspnea Cardiovascular: no chest pain, no dyspnea and no orthopnea Gastrointestinal: no nausea and no vomiting Physical Exam Constitutional: WD/WN, vitals as above no acute distress Respiratory: normal respiratory effort, lungs clear to auscultation Cardiovascular: RRR, no murmur, no edema Musculoskeletal: left knee: well healed surgical incision, +2 effusion, ROM 0/3/95, mild erythema noted. calf SNT, neurovascular intact distally. no pain with gentle PROM, pain increased with end range active ROM. Results & Data Laboratory Results WBC: 11.15 ESR: 88
[2019-12-07] MEDS ORDERED: NALOXONE HCL 0.4 MG/1 ML VIAL/CARP IV PRN ×2 (10:14→15:38)
[2019-12-07] MEDS ORDERED: D5W AND 1/2NSS 1,000 ML IV SCH (10:15)
--- NOTE | 2019-12-07 10:39 | Anesthesiology Consultation ---
Date of Service December 07, 2019 Assessment & Plan (1) Encounter for pre-operative examination: Chart Review Chart Review: Acceptable Risk for Surgery Consults Requested none ASA ASA3 Proposed Anesthesia Anesthesia Type: General Risk / Benefits Reviewed With: PT / POA / Parent / Guardian, Accepts Plan and Informed Consent Obtained History Surgery Operation Date: 12/07/19 07:30 Proposed Procedures p Left Knee Incision and Drainage, Poly Exchange - Carlitos Weathers DO Allergies Allergy/AdvReac Type Severity Reaction Status Date / Time Penicillins Allergy Unknown SWELLING, Verified 10/03/19 05:50 REDNESS Medications Home Medications Medication Instructions Recorded Confirmed Last Taken calcium carbonate [Tums] 200 mg PO UD PRN 09/15/19 10/03/19 10/01/19 ferrous sulfate [iron] 325 mg PO DAILY 09/15/19 10/03/19 09/26/19 folic acid 1 mg PO DAILY 09/15/19 10/03/19 09/26/19 omega 7-bgk-pig-fish oil [Fish Oil] 1 cap PO DAILY 09/15/19 10/03/19 09/26/19 oxycodone 5 - 10 mg PO Q6H PRN #30 tab 10/04/19 Unknown NPO Date Last Intake of Fluids: 12/07/19 Time Last Intake of Fluids: 00:00 Date Last Intake of Solids: 12/07/19 Time Last Intake of Solids: 00:00 Past Medical History Medical History Acid reflux diet related Anemia chronic; with baseline hgb in the 11-13 range per chart review Arthritis Hard of hearing Exercise / Class Metabolic Activity II 4-5 Yardwork/Stairs/Walk up hill Past Family History Family History Father Family history of cancer Family history of diabetes mellitus Family history of [place] (myocardial infarction) Father No problems noted. Brother Family history of cancer Family history of [place] (myocardial infarction) Mother Family history of stroke Past Surgical History Surgical History History of arthroscopy of knee LEFT X2 History of cardiac cath >15 YR AGO (D/T FAMILY HX)= NO STENTS History of carpal tunnel surgery UNSURE WHICH SIDE History of cervical spinal surgery History of colonoscopy History of eye surgery BILAT History of foot surgery R History of left shoulder replacement History of lumbar fusion History of right shoulder replacement History of thumb surgery History of transurethral resection of prostate X2 Past Anesthesia History No Hx of Anesthesia Complications and No Family Hx of Anesthesia Complications History of PONV No Hx of PONV and No Hx of Motion Sickness Social History Smoking Status: Former smoker tobacco type: cigarettes and pipe Hx Alcohol Use: Yes Alcohol type: beer and wine alcohol intake frequency: 3 or more drinks per day (varies from day to day (zero to at most 6 beers/day);no morning/daytime drinking per patient*) Hx Substance Use: No substance use type: does not use Physical Exam Vital Signs Last Vital Signs Temp 100.8 F H 12/07/19 10:30 Resp 18 12/07/19 10:30 BP 125/74 12/07/19 10:30 Pulse Ox 96 12/07/19 10:30 ENMT Mouth: no dentition abnormality Thyromental Distance: > or= 3.5 Finger Breadths Mallampati Class: II Neck normal visual inspection Respiratory normal respiratory effort Auscultation: lungs clear to auscultation bilaterally Cardiovascular Rate/Rhythm: regular rate and regular rhythm Testing Laboratory Results Laboratory Tests 09/22/19 09/22/19 10/04/19 11:41 11:41 05:46 WBC 9.59 Hgb 11.3 L Plt Count 236 PT 10.7 INR 1.0 APTT 28.3 Sodium Potassium Chloride Carbon Dioxide BUN Creatinine Glucose Hemoglobin A1c 5.9 H 10/04/19 05:46 WBC Hgb Plt Count PT INR APTT Sodium 139 Potassium 4.5 Chloride 107 Carbon Dioxide 29 BUN 21 H Creatinine 0.74 Glucose 131 H Hemoglobin A1c Electrocardiogram Date: 09/22/19 Sinus bradycardia, rate 52 bpm Otherwise normal ECG When compared with ECG of 30-SEP-2012 16:31, T wave inversion now evident in Inferior leads Confirmed by Adrian Hirsch ([id number]) on 09/23/2019 7:43:50 AM Chest X-Ray Date: 09/22/19 Findings: + NAD
[2019-12-07] MEDS ORDERED: DEXAMETHASONE SOD INJ 4 MG/ML VIAL ONE (10:43)
[2019-12-07] MEDS ORDERED: PROPOFOL IV EMULSION 10 MG/ML 20 ML VIAL IV ONE (10:43)
[2019-12-07] MEDS ORDERED: LIDOCAINE HCL 2% 2 ML VIAL/AMP(20MG/ML) INFIL ONE (10:43)
[2019-12-07] MEDS ORDERED: fentaNYL citrate 100 MCG/2 ML VIAL ONE ×3 (10:43→13:25)
[2019-12-07] MEDS ORDERED: ONDANSETRON INJ 2 MG/ML 2 ML VIAL ONE (10:43)
[2019-12-07] MEDS ORDERED: BACITRACIN INJ 50,000 UNIT VIAL ONE ×2 (11:10→12:12)
[2019-12-07] MEDS ORDERED: ONDANSETRON INJ 2 MG/ML 2 ML VIAL IV PRN ×2 (11:16→15:38)
[2019-12-07] MEDS ORDERED: ATROPINE SULFATE 0.1 MG/ML 10ML SYR IV PRN (11:16)
[2019-12-07] MEDS ORDERED: ePHEDrine sulfate 50 MG/ML AMP IV PRN (11:16)
--- NOTE | 2019-12-07 11:44 | Infectious Disease Consult ---
Date of Consultation December 07, 2019 Assessment & Plan (1) Gram positive sepsis: will start dapto, repeat blood cultures, await ID gpc. follow OR cultures, currently pending. will need echo. will need picc line and equipment operator intermodal yard IV abx, final will be determined by final culture results. will need to wait for blood cultures to clear, prior to picc line. (2) Infected prosthetic knee joint: History of Present Illness Attending Physician: Carlitos Weathers, pt admitted due to infected left knee. Initial surgery in September, had pain and swelling,saw pcp, esr done 88, was seen ortho office, knee aspirated with return of purulent fluid, - 192,798 wbc, 91%N. pt was sent to hospital and went to OR yesterday, underwent poly exchange, tolerated well. had isolated fever 38.2, now afebrile. blood cultures drawn on admission, growing gpc 1/2 sets. OR cultures pending. he is on no abx at this time. wbc 8, creat 0.6. he is ambulating in room with walker on my exam. slept well, complaining of pain in knee, but is controlled with meds. no f/c. no abd pain, no n/v/d. no cp, sob, cough. drain in place. Allergies Allergy/AdvReac Type Severity Reaction Status Date / Time Penicillins Allergy Unknown SWELLING, Verified 10/03/19 05:50 REDNESS Home Medications Home Medications Medication Instructions Recorded Confirmed Type calcium carbonate [Tums] 200 mg PO UD PRN 09/15/19 10/03/19 History ferrous sulfate [iron] 325 mg PO DAILY 09/15/19 10/03/19 History folic acid 1 mg PO DAILY 09/15/19 10/03/19 History omega 2-mqp-wow-fish oil [Fish Oil] 1 cap PO DAILY 09/15/19 10/03/19 History oxycodone 5 - 10 mg PO Q6H PRN #30 tab 10/04/19 Rx Patient History Medical History Acid reflux diet related Anemia chronic; with baseline hgb in the 11-13 range per chart review Arthritis Hard of hearing Surgical History History of arthroscopy of knee LEFT X2 History of cardiac cath >15 YR AGO (D/T FAMILY HX)= NO STENTS History of carpal tunnel surgery UNSURE WHICH SIDE History of cervical spinal surgery History of colonoscopy History of eye surgery BILAT History of foot surgery R History of left shoulder replacement History of lumbar fusion History of right shoulder replacement History of thumb surgery History of transurethral resection of prostate X2 Family History Father Family history of cancer Family history of diabetes mellitus Family history of [place] (myocardial infarction) Father No problems noted. Brother Family history of cancer Family history of MS (myocardial infarction) Mother Family history of stroke Social History Preferred Language: Andorran Communication Ability: Effective Appeals Reviewer Veteran Required: No Beliefs That Will Affect Care: Protestant Protestant Beliefs: Mosque marital status: Current Living Situation: Spouse Feels Safe at Home: Yes Smoking Status: Former smoker Tobacco Type: cigarettes and pipe ; Hx Alcohol Use: Yes Alcohol type: beer and wine Hx Substance Use: No Review of Systems Review of Systems: All systems reviewed & are unremarkable except as noted in HPI & below Physical Exam Constitutional: WD/WN, vitals as above Eyes: PERRL, conjunctivae normal, anicteric sclerae ENMT: external ear and nose normal, oropharynx normal Neck: normal visual inspection Respiratory: normal respiratory effort, lungs clear to auscultation Cardiovascular: RRR, no murmur, no edema Gastrointestinal (Abdomen): normal bowel sounds, soft, nontender, no hepatosplenomegaly Musculoskeletal: no cyanosis or clubbing, extremities motor strength 5/5 Skin: + wound (dressing intact, drain in place, bloody fluid) Psychiatric: A+Ox3, euthymic affect Results & Data ([facility]) Vital Signs (Past 12 Hours) Vital Signs Temp Pulse Resp BP Pulse Ox 12/07/19 11:30 38.3 C H 93 H 18 141/78 H 97 12/07/19 10:30 38.2 C H 18 125/74 96 Laboratory Results Microbiology 12/07/19 12:44 Synovial Fluid Gram Stain - Final 12/07/19 12:44 Synovial Fluid Aerobic and Anaerobic Culture - Preliminary Staphylococcus aureus 12/07/19 14:50 Blood Aerobic Blood Culture - Preliminary Gram positive cocci clusters PG Care Time/CCT Total # of Minutes Spent Total Time Spent with Patient: Total time spent is greater than 50% in coordination of care (as documented) at patient's floor/unit and/or counseling patient: Coding Level of Care Code 98499 Inpt Consult Level 4 Diagnoses Gram positive sepsis A41.89 Infected prosthetic knee joint T84.59XA; Z96.659
[2019-12-07] MEDS ORDERED: VANCOMYCIN HCL 1 GM/270 ML BAG ONE (12:03)
--- NOTE | 2019-12-07 12:11 | History & Physical Bridge Note ---
Date of Service December 07, 2019 History & Physical Bridge Note I have examined the patient, reviewed the History & Physical and in the interval since the performance of the History & Physical I have noted the following changes of clinical significance: no changes noted
[2019-12-07] MEDS ORDERED: KETAMINE HCL INJ 50 MG/ML 10 ML VIAL ONE (12:54)
--- NOTE | 2019-12-07 13:29 | Operative Report ---
Post Operative Report Pre & Post Diagnosis Operation Date: 12/07/19 07:30 Pre-Op Diagnosis: INFECTED TOTAL LEFT KNEE (DRAINAGE) Post-Op Diagnosis: INFECTED TOTAL LEFT KNEE (DRAINAGE) I identified the patient and participated in the time-out.: Yes Procedure Operation Date: 12/07/19 07:30 Actual Procedures p Left Knee Incision and Drainage, Poly Exchange(Left) to size 9 x 6 polyethylene- Carlitos Weathers DO Surgeon Carlitos Weathers DO Tso Alfred PAULINO Estimated Blood Loss 15 Findings Consistent with Post-Op Diagnosis Patient presents with infected left total knee arthroplasty increase sed rate at 85 CRP 4.3 intraoperative Gram stain revealed gram-positive cocci with fiona purulent fluid and disruption of the extensor mechanism with the VMO Specimens Synovial fluid culture Drains Medium bore Hemovac Anesthesia Type General Complications none Disposition Accompanied Patient To Recovery: No Disposition: Recovery Room Indications Patient presents with a painful swollen knee that occurred approximately 3 days prior denies any history of trauma but had a complete disruption of his medial retinacular repair with fiona purulence in the knee joint Description of Procedure After proper prepping draping the left lower extremity incision made over the region of the previous anterior extension extensile incision fiona purulence was immediately noted in the subcutaneous space this was irrigated cultures were taken subsequently medial parapatellar incision was evaluated the most inferior portion was still intact it was opened the wound was irrigated with 9 L of sterile saline solution with bacitracin another liter utilizing a versa jet for complete total synovectomy poly-been removed the components were prescribed Betadine soak was placed after placement of the final poly-the remaining bone was otherwise uninvolved no evidence of loosening of implants were noted and performed a thorough complete synovectomy final poly-was placed the knee was noted to be stable both flexion extension mid flexion was irrigated once again with copious muscle sterile saline solution medial parapatellar incision closed over 2 moist medium bore Hemovacs with #1 Vicryl subcu was closed 2-0 Vicryl skin was closed skin clips sterile compressive dressing was placed please note Alfred PAULINO was necessary for prepping draping retraction wound closure of deep fascia subcu and skin was necessary for the case I attest to the content of the Intraoperative Record and any orders documented therein. Any exceptions are noted below.
[2019-12-07] MEDS: fentaNYL citrate 100 MCG/2 ML VIAL IV PRN ×2 (14:30→14:35)
--- NOTE | 2019-12-07 14:51 | Anesthesiology Progress Note ---
Date of Service December 07, 2019 Anesthesia Post Procedure Vital Signs Vital Signs: Temp Pulse Pulse Resp BP Pulse Ox 12/07/19 14:35 80 15 126/76 98 12/07/19 14:25 79 18 125/71 98 12/07/19 14:15 79 19 125/81 97 12/07/19 14:09 98.1 F 84 16 130/78 95 12/07/19 11:30 100.9 F H 93 H 18 141/78 H 97 12/07/19 10:30 100.8 F H 18 125/74 96 Pain Intensity Left Knee: Pain Intensity: 6 Transfer of Care Handoff Completed per policy Notes Mental Status: alert / awake / arousable and participated in evaluation Patient Amnestic to Procedure: Yes Nausea / Vomiting: adequately controlled Pain: adequately controlled Airway Patency, RR, SpO2: stable & adequate BP & HR: stable & adequate Hydration State: stable & adequate Anesthetic Complications: no major complications apparent and Pt Satisfied with anesthetic care
[2019-12-07] MEDS ORDERED: HYDROmorphone INJ 0.5 MG/0.5 ML SYR IV PRN (15:38)
[2019-12-07] MEDS ORDERED: bisacodyL 10 MG SUPP PR PRN (15:38)
[2019-12-07] MEDS ORDERED: MAGNESIUM HYDROXIDE SUSP 30 ML UDC PO PRN (15:38)
[2019-12-07] MEDS ORDERED: VANCOMYCIN CONSULT ACTIVE PRN (15:38)
[2019-12-07] MEDS ORDERED: CALCIUM CARBONATE 500 MG CHEWABLE TAB PO PRN (15:38)
--- NOTE | 2019-12-07 15:53 | XRay Report ---
LEFT KNEE 2 VIEWS History: Left total knee arthroplasty. Degenerative arthritis. Postop. FINDINGS: The patient is status post a left total knee arthroplasty. The hardware is intact. No fract ure or dislocation. Skin bry and surgical drains are in place. IMPRESSION: Left total knee arthroplasty. No evidence for hardware complication. ACT 112: Negative or not required by law. Electronically signed by: Oscar Dalton M.D. 12/07/2019 3:51 PM
[2019-12-07] MEDS ORDERED: PATIENT'S HEIGHT AND/OR WEIGHT NEEDED SCH (16:00)
--- NOTE | 2019-12-07 17:04 | Hospitalist Consultation ---
Date of Consultation December 07, 2019 Assessment & Plan (1) Infection of left knee: S/p left knee I&D and poly-exchange on 12/[address] Weathers. - Presently on vancomycin IV - Follow cultures - ID consulted (2) Anemia: Per notes, his baseline hgb is ~11-13. - Monitor after surgery - Continue iron supplement (3) DVT prophylaxis: SCDs - Per primary team Given medical stability, Hospital Medicine team will follow tangentially. Will not plan to see daily as I do not see any active medical issues other than knee infection which ID is following as well. Please call me (Jose Angel Martin) with any questions or concerns. Thank you for letting us assist in the care of this patient! History of Present Illness Attending Physician: Carlitos Weathers, DO History of Present Illness 79yo M w/ hx of left knee osteoarthritis presents as a medical consult after a left knee washout due to infection. He reports that the left knee was doing well for quite awhile, but about 1 week ago became warm and swollen. He otherwise is in a good state of health and has no major complaints. I saw him after surgery, and he reports some mild aching in the leg, but otherwise his ROS is negative. Allergies Allergy/AdvReac Type Severity Reaction Status Date / Time Penicillins Allergy Unknown SWELLING, Verified 10/03/19 05:50 REDNESS Home Medications Home Medications Medication Instructions Recorded Confirmed Type calcium carbonate [Tums] 200 mg PO UD PRN 09/15/19 10/03/19 History ferrous sulfate [iron] 325 mg PO DAILY 09/15/19 10/03/19 History folic acid 1 mg PO DAILY 09/15/19 10/03/19 History omega 3-pdp-chk-fish oil [Fish Oil] 1 cap PO DAILY 09/15/19 10/03/19 History oxycodone 5 - 10 mg PO Q6H PRN #30 tab 10/04/19 Rx Patient History Medical History Acid reflux diet related Anemia chronic; with baseline hgb in the 11-13 range per chart review Arthritis Hard of hearing Surgical History History of arthroscopy of knee LEFT X2 History of cardiac cath >15 YR AGO (D/T FAMILY HX)= NO STENTS History of carpal tunnel surgery UNSURE WHICH SIDE History of cervical spinal surgery History of colonoscopy History of eye surgery BILAT History of foot surgery R History of left shoulder replacement History of lumbar fusion History of right shoulder replacement History of thumb surgery History of transurethral resection of prostate X2 Family History Father Family history of cancer Family history of diabetes mellitus Family history of [place] (myocardial infarction) Father No problems noted. Brother Family history of cancer Family history of [place] (myocardial infarction) Mother Family history of stroke Social History Preferred Language: Citizen Of [place] Communication Ability: Effective Business Unit Manager Required: No Beliefs That Will Affect Care: Faith Faith Beliefs: Alevism marital status: Current Living Situation: Spouse Feels Safe at Home: Yes Smoking Status: Former smoker Tobacco Type: cigarettes and pipe ; Hx Alcohol Use: Yes Alcohol type: beer and wine Hx Substance Use: No Review of Systems Review of Systems: All systems reviewed & are unremarkable except as noted in HPI & below Physical Exam Constitutional: WD/WN, vitals as above Eyes: EOM intact bilaterally; no conjunctival abnormality ENMT: external ear and nose normal, oropharynx normal Neck: trachea midline, no thyromegaly normal visual inspection Respiratory: normal respiratory effort, lungs clear to auscultation no respiratory distress Cardiovascular: RRR, no murmur, no edema Gastrointestinal (Abdomen): Inspection/Auscultation: abdomen normal to inspection; abdomen not distended Musculoskeletal: no cyanosis or clubbing, extremities motor strength 5/5 Knee: + surgical drain present (Sanguinous output) and + limited ROM of knee (In brace) Skin: no rashes, warm and dry Neurologic: moves all extremities and awake Psychiatric: Orientation: alert, oriented to person and cooperative Results & Data ([facility]) Vital Signs (Past 12 Hours) Vital Signs Temp Pulse Pulse Resp BP Pulse Ox 12/07/19 16:19 36.8 C 67 17 117/70 97 12/07/19 15:25 81 16 123/83 97 12/07/19 15:10 74 17 116/74 98 12/07/19 14:55 36.7 C 77 17 115/83 97 12/07/19 14:45 82 16 127/73 97 12/07/19 14:35 80 15 126/76 98 12/07/19 14:25 79 18 125/71 98 12/07/19 14:15 79 19 125/81 97 12/07/19 14:09 36.7 C 84 16 130/78 95 12/07/19 11:30 38.3 C H 93 H 18 141/78 H 97 12/07/19 10:30 38.2 C H 18 125/74 96 PG Care Time/CCT Total # of Minutes Spent Total Time Spent with Patient: Total time spent is greater than 50% in coordination of care (as documented) at patient's floor/unit and/or counseling patient: Coding Level of Care Code 10511 Inpt Consult Level 3 Diagnoses Infection of left knee M00.9 Anemia D64.9 DVT prophylaxis Z29.9
[2019-12-07] MEDS: SODIUM CHLORIDE 0.9% 1000ML 1,000 ML IV SCH (17:50)
[2019-12-07] MEDS: FERROUS GLUCONATE 324 MG TAB PO SCH (17:54)
[2019-12-07] MEDS: DOCUSATE SODIUM 100 MG CAP PO SCH (21:37)
[2019-12-07] MEDS: ASPIRIN 81 MG ECTAB PO SCH (21:37)
[2019-12-07] MEDS: ACETAMINOPHEN 500 MG TAB PO SCH (21:37)
[2019-12-07] MEDS: SENNA 8.6 MG TAB PO SCH (21:38)
[2019-12-07] MEDS: OXYCODONE HCL IR 5 MG TAB (IMMEDIATE RELEASE) PO PRN (21:42)
[2019-12-08] MEDS ORDERED: VANCOMYCIN HCL 1,250 MG in SODIUM CHLORIDE 0.9% 250 ML IV SCH
[2019-12-08] MEDS: SODIUM CHLORIDE 0.9% 1000ML 1,000 ML IV SCH (04:43)
[2019-12-08] MEDS: ACETAMINOPHEN 500 MG TAB PO SCH ×3 (04:44→21:08)
[2019-12-08 06:12] LABS: Hematocrit (blood only) 31.3 % (42-52); Hemoglobin 9.9 g/dL (14.0-18.0); Mean Corpuscular Hemoglobin 29.9 pg (25-34); Mean Corpuscular Hgb Conc 31.6 g/dL (32-36); Mean Corpuscular Volume 94.6 fL (80-100); Mean Platelet Volume 10.6 fL (7.4-10.4); Platelet Count 197 K/uL (130-400); RDW Coefficient of Variation 14.1 % (11.5-14.5); RDW Standard Deviation 49.1 fL (36.4-46.3); Red Blood Count 3.31 M/uL (4.7-6.1); White Blood Count 8.13 K/uL (4.8-10.8)
[2019-12-08 06:48] LABS: BUN Creatinine Ratio 30.2 (10-20); Creatinine Clr Calc Pharmacy 98.4 ml/min; Est GFR (African American) 108.6; Est GFR (Non-African American) 93.7; Potassium 3.8 mmol/L (3.5-5.1)
[2019-12-08] MEDS ORDERED: DAPTOMYCIN CONSULT ACTIVE PRN (08:55)
--- NOTE | 2019-12-08 09:02 | Anesthesiology Progress Note ---
Date of Service December 08, 2019 Anesthesia Post Procedure Vital Signs Vital Signs: Temp Pulse Pulse Resp BP Pulse Ox 12/08/19 07:11 36.3 C L 55 L 16 105/63 95 12/08/19 03:25 36.3 C L 57 L 16 105/65 96 12/07/19 23:04 37.2 C 65 16 102/61 95 12/07/19 18:46 36.6 C 71 18 105/65 95 12/07/19 17:50 37.1 C 89 16 122/75 96 12/07/19 17:45 37.1 C 87 18 122/75 96 12/07/19 16:45 36.8 C 68 18 121/76 95 12/07/19 16:19 36.8 C 67 17 117/70 97 12/07/19 15:45 36.8 C 73 16 126/75 97 12/07/19 15:25 81 16 123/83 97 12/07/19 15:10 74 17 116/74 98 12/07/19 14:55 36.7 C 77 17 115/83 97 12/07/19 14:45 82 16 127/73 97 12/07/19 14:35 80 15 126/76 98 12/07/19 14:25 79 18 125/71 98 12/07/19 14:15 79 19 125/81 97 12/07/19 14:09 36.7 C 84 16 130/78 95 12/07/19 11:30 38.3 C H 93 H 18 141/78 H 97 12/07/19 10:30 38.2 C H 18 125/74 96 Pain Intensity Left Knee: Pain Intensity: 4 Notes Mental Status: alert / awake / arousable and participated in evaluation Patient Amnestic to Procedure: Yes Nausea / Vomiting: adequately controlled Pain: adequately controlled Airway Patency, RR, SpO2: stable & adequate BP & HR: stable & adequate Hydration State: stable & adequate Anesthetic Complications: no major complications apparent
[2019-12-08] MEDS: DOCUSATE SODIUM 100 MG CAP PO SCH ×2 (09:11→21:09)
[2019-12-08] MEDS: FERROUS GLUCONATE 324 MG TAB PO SCH ×2 (09:11→16:23)
[2019-12-08] MEDS: FOLIC ACID 1 MG TAB PO SCH (09:11)
[2019-12-08] MEDS: MULTIVITAMIN TAB PO SCH (09:12)
[2019-12-08] MEDS: ASPIRIN 81 MG ECTAB PO SCH ×2 (09:12→21:09)
[2019-12-08] MEDS: OXYCODONE HCL IR 5 MG TAB (IMMEDIATE RELEASE) PO PRN ×2 (09:15→16:22)
--- NOTE | 2019-12-08 10:22 | Orthopedic Progress Note ---
Date of Service December 08, 2019 Assessment & Plan (1) Infected prosthetic knee joint: Postop day 1 status post irrigation and debridement right septic TKA with polyethylene bearing change. Continue IV vancomycin at this time. Cultures are showing staph aureus with sensitivities pending. Plan for PICC line for long-term IV antibiotics post discharge PT/OT protocols. Weightbearing as tolerated. Must use immobilizer on the operative leg for ambulation. Okay to have the immobilizer loosened while in bed. Will discuss range of motion with Dr. Weathers. DVT prophylaxis with aspirin p.o. twice daily, SCDs. DC planning-likely home health services with IV antibiotics and physical therap y. Admission and Anticipated Discharge Date Admission Date: December 07, 2019 Subjective Patient is currently sitting up in his chair at the bedside. He is talking to family on the phone. No complaints this morning. He is comfortable. Discussed treatment plans far as length of time for IV antibiotics and likely use of a PICC line. Denies any shortness of breath, chest pain, lightheadedness. Physical Exam Physical Exam: Dressings are clean, dry, and intact. Calves are soft nontender. Neurovascular is intact.Latest Hemovac drainage was 50 mL's from the previous shift. Results & Data ([facility]) Vital Signs (Past 12 Hours) Vital Signs Temp Pulse Resp BP Pulse Ox 12/08/19 07:11 36.3 C L 55 L 16 105/63 95 12/08/19 03:25 36.3 C L 57 L 16 105/65 96 12/07/19 23:04 37.2 C 65 16 102/61 95 Laboratory Results Laboratory Results WBC 8.13 K/uL (4.8-10.8) 12/08/19 05:46 RBC 3.31 M/uL (4.7-6.1) L 12/08/19 05:46 Hgb 9.9 g/dL (14.0-18.0) L 12/08/19 05:46 Hct 31.3 % (42-52) L 12/08/19 05:46 MCV 94.6 fL (80-100) 12/08/19 05:46 MCH 29.9 pg (25-34) 12/08/19 05:46 MCHC 31.6 g/dL (32-36) L 12/08/19 05:46 RDW Std Deviation 49.1 fL (36.4-46.3) H 12/08/19 05:46 RDW Coeff of Brenda 14.1 % (11.5-14.5) 12/08/19 05:46 Plt Count 197 K/uL (130-400) 12/08/19 05:46 MPV 10.6 fL (7.4-10.4) H 12/08/19 05:46 Sodium 139 mmol/L (136-145) 12/08/19 05:46 Potassium 3.8 mmol/L (3.5-5.1) 12/08/19 05:46 Chloride 109 mmol/L (98-107) H 12/08/19 05:46 Carbon Dioxide 26 mmol/L (21-32) 12/08/19 05:46 Anion Gap 4.0 (3-11) 12/08/19 05:46 BUN 19 mg/dl (7-18) H 12/08/19 05:46 Creatinine 0.62 mg/dl (0.6-1.4) 12/08/19 05:46 Est Cr Clr Drug Dosing 98.4 ml/min 12/08/19 05:46 Est GFR ( Amer) 108.6 12/08/19 05:46 Est GFR (Non-Af Amer) 93.7 12/08/19 05:46 BUN/Creatinine Ratio 30.2 (10-20) H 12/08/19 05:46 Glucose 143 mg/dl (70-99) H 12/08/19 05:46 Calcium 8.0 mg/dl (8.5-10.1) L 12/08/19 05:46 Bld Cult Staph aureus PCR Positive (Negative) A 12/07/19 14:50 Blood Culture MRSA PCR Negative (Negative) 12/07/19 14:50 Diagnostic Findings MONISHA DARNELL 79 M [address], [place] [address] / Director: Barry Frank M.D. Clinical Laboratory Report Name: MONISHA DARNELL Acct: [id number] Status: DEP CLI : 1940 [facility] Date: 12/07/19 Age: 79 Sex: M Dis Date: Loc: Laboratory Specimen Drop Off Spec: [id number] Collected: 12/07/19-UNK Received: 12/07/19-[address]: Carlitos Weathers,D.O. Copy To: Benjie Merida, DO ADDITIONAL,FAX Source: Knee,Left OV Order: Ordered: Aer/Catrina Cult/Sm Procedure Result Verified Site Gram Stain Final 12/07/19-1331 Gram Stain Result Many WBCs Seen Few Gram Positive Cocci Aero/Catrina Cult Preliminary 12/08/19-0837 Organism 1 Staphylococcus aureus Quantity Moderate Sens Sensitivities to Follow
[2019-12-08] MEDS: DAPTOmycin 400 MG in SYRINGE 0 ML IV SCH (10:39)
[2019-12-08] MEDS: SENNA 8.6 MG TAB PO SCH (21:09)
[2019-12-09] MEDS: ACETAMINOPHEN 500 MG TAB PO SCH ×3 (05:39→21:35)
[2019-12-09] MEDS: FOLIC ACID 1 MG TAB PO SCH (08:21)
[2019-12-09] MEDS: DOCUSATE SODIUM 100 MG CAP PO SCH ×2 (08:21→21:35)
[2019-12-09] MEDS: MULTIVITAMIN TAB PO SCH (08:21)
[2019-12-09] MEDS: FERROUS GLUCONATE 324 MG TAB PO SCH ×2 (08:22→17:23)
[2019-12-09] MEDS: ASPIRIN 81 MG ECTAB PO SCH ×2 (08:22→21:35)
--- NOTE | 2019-12-09 08:46 | Orthopedic Progress Note ---
Date of Service December 09, 2019 Assessment & Plan (1) Infected prosthetic knee joint: 79 yo male stable POD #2 s/p left TKA I&D, poly change, MSSA on culture 1. Med management- PICC line, currently on IV Dapto 2. DVT prophylaxis- ASA, SCDs 3. PT/OT 4. D/C planning- home w/ HH Admission and Anticipated Discharge Date Admission Date: December 07, 2019 Subjective Pt resting in chair, eating breakfast, denies complaints or pain Physical Exam Physical Exam: Dressing and drain in place, toes mobile Results & Data ([facility]) Vital Signs (Past 12 Hours) Vital Signs Temp Pulse Pulse Resp BP Pulse Ox 12/09/19 07:34 37.6 C H 83 18 109/63 96 12/08/19 23:45 37.5 C 12/08/19 23:20 38.3 C H 88 18 110/61 95 Laboratory Results Lab Results 12/07/19 12/08/19 12/08/19 Range/Units 14:50 05:46 05:46 WBC 8.13 (4.8-10.8) K/uL RBC 3.31 L (4.7-6.1) M/uL Hgb 9.9 L (14.0-18.0) g/dL Hct 31.3 L (42-52) % MCV 94.6 (80-100) fL MCH 29.9 (25-34) pg MCHC 31.6 L (32-36) g/dL RDW Std Deviation 49.1 H (36.4-46.3) fL RDW Coeff of Brenda 14.1 (11.5-14.5) % Plt Count 197 (130-400) K/uL MPV 10.6 H (7.4-10.4) fL Sodium 139 (136-145) mmol/L Potassium 3.8 (3.5-5.1) mmol/L Chloride 109 H (98-107) mmol/L Carbon Dioxide 26 (21-32) mmol/L Anion Gap 4.0 (3-11) BUN 19 H (7-18) mg/dl Creatinine 0.62 (0.6-1.4) mg/dl Est Cr Clr Drug Dosing 98.4 ml/min Est GFR ( Amer) 108.6 Est GFR (Non-Af Amer) 93.7 BUN/Creatinine Ratio 30.2 H (10-20) Glucose 143 H (70-99) mg/dl Calcium 8.0 L (8.5-10.1) mg/dl Bld Cult Staph aureus PCR Positive A (Negative) Blood Culture MRSA PCR Negative (Negative) Microbiology 12/07/19 14:52 Aerobic Blood Culture - Preliminary Blood Staphylococcus aureus Anaerobic Blood Culture - Preliminary No growth in Anaerobic bottle after 24 hours. 12/07/19 14:50 Aerobic Blood Culture - Preliminary Blood Staphylococcus aureus Anaerobic Blood Culture - Preliminary No growth in Anaerobic bottle after 24 hours. 12/07/19 12:44 Gram Stain - Final Synovial Fluid Aerobic and Anaerobic Culture - Preliminary Staphylococcus aureus
[2019-12-09] MEDS: DAPTOmycin 400 MG in SYRINGE 0 ML IV SCH (09:50)
--- NOTE | 2019-12-09 14:18 | Hospitalist Progress Note ---
Date of Service December 09, 2019 Assessment & Plan (1) Infection of left knee: S/p left knee I&D and poly-exchange on 12/[address] Weathers. - Presently on daptomycin IV - Cultures all growing MSSA -> Will switch to cefazolin as first-line therapy. - Will get TTE and reculture as needed - ID consulted (2) Anemia: Per notes, his baseline hgb is ~11-13. - Monitor after surgery -> Down to 9.9 on 12/07. - Continue iron supplement (3) DVT prophylaxis: SCDs - Per primary team Given medical stability, Hospital Medicine team will follow tangentially. Will not plan to see daily as I do not see any active medical issues other than knee infection which ID is following as well. Please call me (Jose Angel Martin) with any questions or concerns. Thank you for letting us assist in the care of this pa tient! Admission and Anticipated Discharge Date Admission Date: December 07, 2019 Subjective Doing well today. No noted fevers subjectively. No new joint pain. Reports no fevers/chills, chest pain, shortness of breath, abdominal pain, nausea, or vomiting. Physical Exam Constitutional: WD/WN, vitals as above Eyes: EOM intact bilaterally; no conjunctival abnormality ENMT: external ear and nose normal, oropharynx normal Neck: trachea midline, no thyromegaly normal visual inspection Respiratory: normal respiratory effort, lungs clear to auscultation no respiratory distress Cardiovascular: RRR, no murmur, no edema Gastrointestinal (Abdomen): Inspection/Auscultation: abdomen normal to inspection; abdomen not distended Musculoskeletal: no cyanosis or clubbing, extremities motor strength 5/5 Knee: + surgical drain present (Sanguinous output) and + limited ROM of knee (In brace) Skin: no rashes, warm and dry Neurologic: moves all extremities and awake Psychiatric: Orientation: alert, oriented to person and cooperative Results & Data ([facility]) Vital Signs (Past 12 Hours) Vital Signs Temp Pulse Resp BP Pulse Ox 12/09/19 07:34 37.6 C H 83 18 109/63 96 PG Care Time/CCT Total # of Minutes Spent Total Time Spent with Patient: Total time spent is greater than 50% in coordination of care (as documented) at patient's floor/unit and/or counseling patient: Coding Level of Care Code 71172 Subseq Hosp Care Lvl 2 Diagnoses Infection of left knee M00.9 Anemia D64.9 DVT prophylaxis Z29.9
[2019-12-09] MEDS: CEFAZOLIN 2000MG 2,000 MG/15 ML SYR IV SCH ×2 (16:07→22:27)
--- NOTE | 2019-12-09 17:58 | XCELERA ---
[id number] \\[email or web address]\[id number]
[2019-12-09] MEDS: OXYCODONE HCL IR 5 MG TAB (IMMEDIATE RELEASE) PO PRN (21:33)
[2019-12-09] MEDS: SENNA 8.6 MG TAB PO SCH (21:35)
[2019-12-10] MEDS: ACETAMINOPHEN 500 MG TAB PO SCH ×3 (05:46→22:38)
[2019-12-10] MEDS: CEFAZOLIN 2000MG 2,000 MG/15 ML SYR IV SCH ×3 (05:46→22:41)
[2019-12-10 05:58] LABS: Hematocrit (blood only) 31.5 % (42-52); Mean Corpuscular Hemoglobin 30.1 pg (25-34); Mean Corpuscular Hgb Conc 31.7 g/dL (32-36); Mean Corpuscular Volume 94.9 fL (80-100); Mean Platelet Volume 10.5 fL (7.4-10.4); Platelet Count 218 K/uL (130-400); RDW Coefficient of Variation 14.1 % (11.5-14.5); RDW Standard Deviation 49.1 fL (36.4-46.3); Red Blood Count 3.32 M/uL (4.7-6.1); White Blood Count 5.26 K/uL (4.8-10.8)
[2019-12-10 06:37] LABS: Albumin Level 2.2 gm/dl (3.4-5.0); BUN Creatinine Ratio 27.9 (10-20); Calcium 7.9 mg/dl (8.5-10.1); Creatinine Clr Calc Pharmacy 117.3 ml/min; Est GFR (African American) 116.7; Est GFR (Non-African American) 100.7; Magnesium 2.3 mg/dl (1.8-2.4); Potassium 3.8 mmol/L (3.5-5.1)
[2019-12-10 06:40] LABS: Albumin Globulin Ratio 0.5 (0.9-2); Bilirubin,Total 0.4 mg/dl (0.2-1); Globulin 4.1 gm/dl (2.5-4.0); Phosphorus 2.4 mg/dl (2.5-4.9); Total Protein 6.3 gm/dl (6.4-8.2)
--- NOTE | 2019-12-10 08:39 | Orthopedic Progress Note ---
Date of Service December 10, 2019 Assessment & Plan (1) Infected prosthetic knee joint: 79 yo male stable POD #3 s/p left TKA I&D, poly change, MSSA on culture 1. Med management- PICC line in place, now on IV Ancef 2. DVT prophylaxis- ASA, SCDs 3. PT/OT 4. D/C planning- SS working on home vs outpt IV abx Admission and Anticipated Discharge Date Admission Date: December 07, 2019 Subjective Pt resting in chair, denies complaints Physical Exam Physical Exam: Dressing/drain d/c'd, wound vac in place, toes mobile Results & Data ([facility]) Vital Signs (Past 12 Hours) Vital Signs Temp Pulse Pulse Resp BP Pulse Ox 12/10/19 07:12 37.1 C 93 H 18 113/65 96 12/09/19 23:20 37.8 C H 86 20 110/64 98 Laboratory Results 12/10/19 12/10/19 Range/Units 05:30 05:30 WBC 5.26 (4.8-10.8) K/uL RBC 3.32 L (4.7-6.1) M/uL Hgb 10.0 L (14.0-18.0) g/dL Hct 31.5 L (42-52) % MCV 94.9 (80-100) fL MCH 30.1 (25-34) pg MCHC 31.7 L (32-36) g/dL RDW Std Deviation 49.1 H (36.4-46.3) fL RDW Coeff of Brenda 14.1 (11.5-14.5) % Plt Count 218 (130-400) K/uL MPV 10.5 H (7.4-10.4) fL Sodium 137 (136-145) mmol/L Potassium 3.8 (3.5-5.1) mmol/L Chloride 108 H (98-107) mmol/L Carbon Dioxide 27 (21-32) mmol/L Anion Gap 2.0 L (3-11) BUN 14 (7-18) mg/dl Creatinine 0.52 L (0.6-1.4) mg/dl Est Cr Clr Drug Dosing 117.3 ml/min Est GFR ( Amer) 116.7 Est GFR (Non-Af Amer) 100.7 BUN/Creatinine Ratio 27.9 H (10-20) Glucose 116 H (70-99) mg/dl Calcium 7.9 L (8.5-10.1) mg/dl Phosphorus 2.4 L (2.5-4.9) mg/dl Magnesium 2.3 (1.8-2.4) mg/dl Total Bilirubin 0.4 (0.2-1) mg/dl AST 60 H (15-37) U/L ALT 74 (12-78) U/L Alkaline Phosphatase 81 (45-117) U/L Total Protein 6.3 L (6.4-8.2) gm/dl Albumin 2.2 L (3.4-5.0) gm/dl Globulin 4.1 H (2.5-4.0) gm/dl Albumin/Globulin Ratio 0.5 L (0.9-2) Microbiology 12/07/19 14:50 Aerobic Blood Culture - Preliminary Blood Staphylococcus aureus Anaerobic Blood Culture - Preliminary No growth in Anaerobic bottle after 48 hours. 12/07/19 14:52 Aerobic Blood Culture - Preliminary Blood Staphylococcus aureus Anaerobic Blood Culture - Preliminary No growth in Anaerobic bottle after 48 hours. 12/08/19 09:38 Aerobic Blood Culture - Preliminary Blood No growth in Aerobic bottle after 24 hours. Anaerobic Blood Culture - Preliminary No growth in Anaerobic bottle after 24 hours. 12/08/19 09:43 Aerobic Blood Culture - Preliminary Blood No growth in Aerobic bottle after 24 hours. Anaerobic Blood Culture - Preliminary No growth in Anaerobic bottle after 24 hours.
[2019-12-10] MEDS: FOLIC ACID 1 MG TAB PO SCH (08:40)
[2019-12-10] MEDS: FERROUS GLUCONATE 324 MG TAB PO SCH ×2 (08:40→16:32)
[2019-12-10] MEDS: DOCUSATE SODIUM 100 MG CAP PO SCH ×2 (08:40→21:05)
[2019-12-10] MEDS: ASPIRIN 81 MG ECTAB PO SCH ×2 (08:41→21:06)
[2019-12-10] MEDS: MULTIVITAMIN TAB PO SCH (08:41)
[2019-12-10] MEDS: OXYCODONE HCL IR 5 MG TAB (IMMEDIATE RELEASE) PO PRN (15:49)
--- NOTE | 2019-12-10 18:39 | Hospitalist Progress Note ---
Date of Service December 10, 2019 Assessment & Plan (1) Infection of left knee: S/p left knee I&D and poly-exchange on 12/[address] Weathers. - ID consulted - TTE negative. Repeat blood cultures on 12/07 are negative at 48 hours. Last fever on 12/07. - Cultures all growing MSSA -> Will switch to cefazolin as first-line therapy. - Per UpToDate, I believe this patient could be considered uncomplicated MSSA infection. Will need to discuss with ID as he could have a shorter course of antibiotics (possibly as short as 14 days?). Hospitalist and ID should confer on this before final recommendations are given. If cultures remain negative and no fevers tonight, could go home tomorrow (12/10) possibly. (2) Anemia: Per notes, his baseline hgb is ~11-13. - Monitor after surgery -> Down to 9.9 on 12/07. Stable today. - Continue iron supplement (3) DVT prophylaxis: ASA 81mg BID - Per primary team Admission and Anticipated Discharge Date Admission Date: December 07, 2019 Subjective DOing well today. No major knee pain. Reports no fevers/chills, chest pain, shortness of breath, abdominal pain, nausea, or vomiting. Physical Exam Constitutional: WD/WN, vitals as above Eyes: EOM intact bilaterally; no conjunctival abnormality ENMT: external ear and nose normal, oropharynx normal Neck: trachea midline, no thyromegaly normal visual inspection Respiratory: normal respiratory effort, lungs clear to auscultation no respiratory distress Cardiovascular: RRR, no murmur, no edema Gastrointestinal (Abdomen): Inspection/Auscultation: abdomen normal to inspection; abdomen not distended Musculoskeletal: no cyanosis or clubbing, extremities motor strength 5/5 Knee: + surgical drain present (Sanguinous output) and + limited ROM of knee (In brace) Skin: no rashes, warm and dry Neurologic: moves all extremities and awake Psychiatric: Orientation: alert, oriented to person and cooperative Results & Data ([facility]) Vital Signs (Past 12 Hours) Vital Signs Temp Pulse Pulse Resp BP Pulse Ox 12/10/19 14:50 37.1 C 76 16 122/65 97 12/10/19 11:16 36.9 C 12/10/19 07:12 37.1 C 93 H 18 113/65 96 PG Care Time/CCT Total # of Minutes Spent Total Time Spent with Patient: Total time spent is greater than 50% in co ordination of care (as documented) at patient's floor/unit and/or counseling patient: Coding Level of Care Code 68756 Subseq Hosp Care Lvl 2 Diagnoses Infection of left knee M00.9 Anemia D64.9 DVT prophylaxis Z29.9
[2019-12-10] MEDS: SENNA 8.6 MG TAB PO SCH (21:06)
[2019-12-11] MEDS: OXYCODONE HCL IR 5 MG TAB (IMMEDIATE RELEASE) PO PRN ×2 (00:04→09:25)
[2019-12-11] MEDS: ACETAMINOPHEN 500 MG TAB PO SCH ×2 (06:22→13:57)
[2019-12-11] MEDS: DOCUSATE SODIUM 100 MG CAP PO SCH (07:54)
[2019-12-11] MEDS: FERROUS GLUCONATE 324 MG TAB PO SCH (07:54)
[2019-12-11] MEDS: FOLIC ACID 1 MG TAB PO SCH (07:54)
[2019-12-11] MEDS: MULTIVITAMIN TAB PO SCH (07:54)
[2019-12-11] MEDS: ASPIRIN 81 MG ECTAB PO SCH (07:55)
[2019-12-11] MEDS: CEFAZOLIN 2000MG 2,000 MG/15 ML SYR IV SCH (07:59)
[2019-12-11] MEDS: POT PHOSPHATE MONOBASIC W/ SOD TAB PO SCH ×2 (09:22→12:16)
--- NOTE | 2019-12-11 09:35 | Orthopedic Progress Note ---
Date of Service December 11, 2019 Assessment & Plan (1) Infected prosthetic knee joint: 79 yo male stable POD #4 s/p left TKA I&D, poly change, MSSA on culture 1. Med management- PICC line in place, now on IV Ancef; Await input from Dr Billings on final antibiotic choice. Will need at least 6 weeks of IV antibx unless otherwise specified. 2. DVT prophylaxis- ASA, SCDs 3. PT/OT 4. D/C planning- SS working on home vs outpt IV abx Admission and Anticipated Discharge Date Admission Date: December 07, 2019 Subjective Pt sitting up in chair at bedside. Just finished walking in the hallway with PT. No complaints currently. Feeling well. Pain controlled. Physical Exam Physical Exam: RUKHSANA dressing intact. No drainage. No erythema around the knee. Calves, soft, NT. NV intact. Immobilizer put back on. Results & Data ([facility]) Vital Signs (Past 12 Hours) Vital Signs Temp Pulse Resp BP Pulse Ox 12/11/19 07:02 36.8 C 69 18 121/77 97 12/10/19 23:07 37.0 C 105 H 18 132/68 92
--- NOTE | 2019-12-11 09:56 | Infectious Disease Progress Nt ---
Date of Service December 11, 2019 Assessment & Plan (1) Gram positive sepsis: can continue ancef, ok for picc, repeat blood cultures negative. will need 6 weeks IV abx min, will need weekly cbc, cmp, esr while on therapy. Rocephin 2g IV daily would be alternative option if once daily dosing preferred. (2) Infected prosthetic knee joint: Admission and Anticipated Discharge Date Admission Date: December 07, 2019 Subjective initial blood cultures and OR cultures growing MSSA, resistant to clinda, repeat blood cultures negative, echo negative for veg. on ancef, tolerating well. afebrile. wbc 5 Results & Data ([facility]) Vital Signs (Past 12 Hours) Vital Signs Temp Pulse Resp BP Pulse Ox 12/11/19 07:02 36.8 C 69 18 121/77 97 12/10/19 23:07 37.0 C 105 H 18 132/68 92 Laboratory Results Microbiology 12/08/19 09:43 Blood Aerobic Blood Culture - Preliminary No growth in Aerobic bottle after 48 hours. 12/08/19 09:43 Blood Anaerobic Blood Culture - Preliminary No growth in Anaerobic bottle after 48 hours. 12/08/19 09:38 Blood Aerobic Blood Culture - Preliminary No growth in Aerobic bottle after 48 hours. 12/08/19 09:38 Blood Anaerobic Blood Culture - Preliminary No growth in Anaerobic bottle after 24 hours. 12/07/19 14:50 Blood Aerobic Blood Culture - Preliminary Staphylococcus aureus 12/07/19 14:50 Blood Anaerobic Blood Culture - Preliminary No growth in Anaerobic bottle after 48 hours. 12/07/19 14:52 Blood Aerobic Blood Culture - Preliminary Staphylococcus aureus 12/07/19 14:52 Blood Anaerobic Blood Culture - Preliminary No growth in Anaerobic bottle after 48 hours. 12/07/19 12:44 Synovial Fluid Gram Stain - Final 12/07/19 12:44 Synovial Fluid Aerobic and Anaerobic Culture - Preliminary Staphylococcus aureus PG Care Time/CCT Total # of Minutes Spent Total Time Spent with Patient: Total time spent is greater than 50% in coordination of care (as documented) at patient's floor/unit and/or counseling patient: Coding Level of Care Code 19634 Subseq Hosp Care Lvl 1 Diagnoses Gram positive sepsis A41.89 Infected prosthetic knee joint T84.59XA; Z96.659
--- NOTE | 2019-12-11 10:12 | Hospitalist Progress Note ---
Date of Service December 11, 2019 Assessment & Plan (1) Infection of left knee: * S/p left knee I&D and poly-exchange on 12/[address] Weathers. * PT/OT/pain management/bowel regimen/DVT prophylaxis per primary team * ID consulted -- appreciate input * TTE negative. Repeat blood cultures on 12/07 are negative at 48 hours. Last fever on 12/07. * Cultures all growing MSSA -> Will switch to cefazolin as first-line therapy --> per discussion with ID, will continue with 6 weeks IV Rocephin * Rocephin started today -- given PCN allergy, will see how he tolerates, and possible discharge later today (12/10) per primary team (2) Anemia: * Per notes, his baseline hgb is ~11-13. * Monitor after surgery -> Down to 9.9 on 12/07. Improved h/h to 10/31.5 on repeat. * Continue iron supplement (3) DVT prophylaxis: * ASA 81mg BID - Per primary team Dispo: discharge later this afternoon with IV rocpehin x 6 weeks. Follow up with ID, PCP Medicine to sign off. Please reach out with any questions/concerns. Admission and Anticipated Discharge Date Admission Date: December 07, 2019 Supervising Physician Co-Signing Physician Notes Attending Attestation - Chart reviewed in detail, care plan d/w JEFFERSON Del Rosario. I agree w/ the miller components of her documentation. Left septic knee 2nd MSSA - s/p I & D, etc. 6-week course of IV rocephin for such. Labs/vitals acceptable. Medicine to sign off. Rock Garcia MD Subjective Patient doing well. Pain controlled with PO medications. Plans for discharge on IV abx for six weeks. Waiting for determination from ID and will set up for dischare later today. Eating/drinking without difficulty. No f/c, cp, sob, abd pain, n/v/d/c. Review of Systems Review of Systems: All systems reviewed & are unremarkable except as noted in HPI & below Physical Exam Constitutional: WD/WN, vitals as above no acute distress Eyes: + anicteric sclerae and PERRL Neck: trachea midline, no thyromegaly Respiratory: normal respiratory effort, lungs clear to auscultation Cardiovascular: RRR, no murmur, no edema Gastrointestinal (Abdomen): normal bowel sounds, soft, nontender, no hepatosplenomegaly Musculoskeletal: RUKHSANA to LEFT knee -- dressing c/d/i. No evidence of erythema. Calves nontender. NVI. 2+ dp, pt pulses bilaterally Skin: no rashes, warm and dry Neurologic: PERRL, EOMI, accommodation nl, no face palsy, no dysarthria Psychiatric: A+Ox3, euthymic affect PG Care Time/CCT Total # of Minutes Spent Total Time Spent with Patient: Total time spent is greater than 50% in coordination of care (as documented) at patient's floor/unit and/or counseling patient: Coding Level of Care Code 98857 Subseq Hosp Care Lvl 2 Diagnoses Infection of left knee M00.9 Anemia D64.9 DVT prophylaxis Z29.9
[2019-12-11] MEDS ORDERED: cefTRIAXone SODIUM 2,000 MG in DEXTROSE 5% 50 ML IV SCH (12:00)
--- NOTE | 2019-12-12 09:18 | Discharge Summary ---
Date of Service December 12, 2019 Admission HPI Per Admitting Provider Juan David is 79 year old male presented to office today with possible left knee infection, he is s/p left total knee replacement in September 2019. he originally progressed well after his surgery, however started to develop swelling and increased pain about 1 week ago, he was seen by his PCP yesterday and labs were drawn, his WBC was 11.15, ESR of 88. was seen by dr arce earlier today and knee aspirated showing thick purulent fluid. it was recommended that patient be direct admitted to [facility] for I&D and poly exchange of his left knee. Admission Exam Per Admitting Provider Constitutional: WD/WN, vitals as above no acute distress Respiratory: normal respiratory effort, lungs clear to auscultation Cardiovascular: RRR, no murmur, no edema Musculoskeletal: left knee: well healed surgical incision, +2 effusion, ROM 0/3/95, mild erythema noted. calf SNT, neurovascular intact distally. no pain with gentle PROM, pain increased with end range active ROM. Principal Diagnosis Septic Left TKA Discharge Data Allergies Allergy/AdvReac Type Severity Reaction Status Date / Time Penicillins Allergy Unknown SWELLING, Verified 10/03/19 05:50 REDNESS Consultations 12/07/19 10:08 Consult Case Management - Discharge Planning Routine 12/07/19 10:16 Consult Infectious Diseases Routine 12/07/19 15:38 Consult Case Management - Discharge Planning Routine Consult Hospitalist Routine Consult Infectious Diseases Routine Procedures Performed Operation Date: 12/07/19 07:30 Actual Procedures p Left Knee Incision and Drainage, Poly Exchange(Left) - Carlitos Arce, Hospital Course (1) Infected prosthetic knee joint: Patient was admitted on the above-noted date with the above-noted diagnosis of septic left TKA and was taken to the operating room and underwent open irrigation and debridement with polyethylene bearing change. Patient tolerated the procedure well. Dr. Jose Angel Martin has been consulted from [facility] hospitalist group to follow patient medically during his stay. On his first postoperative day he was sitting up in his chair at the bedside. He was talking to family on the phone. He had no complaints and was comfortable. We discussed treatment plans and were awaiting cultures. He had no complaints at that time and denies shortness of breath, chest pain, lightheadedness. Dressings were clean dry and intact and calves are soft nontender. Neurovascular is intact. Hemovac drainage was 50 mL's from the previous shift. Vital signs were stable and he was afebrile. He was started on PT and OT protocols and continued on IV antibiotics as well as DVT prophylaxis. Dr. Lind had been consulted from infectious disease as well to assist with antibiotic choice. The patient cultures were growing out MSSA on operative cultures as well as blood cultures. Dr. Martin ordered a TTE and repeat blood cultures. He had also switched him to IV cefazolin due to recent cultures and sensitivities. TTE was negative and repeat blood cultures had been negative. Patient's hemoglobin was remaining stable at around 10. Dr. Lind had weight in and plans were for either continuing cefazolin and or switching to 2 g of Rocephin daily for once daily dosing. Patient continue remained medically stable as well as orthopedically stable. It was decided to change him to once daily dosing with Rocephin. Case management had arranged home health services and IV antibiotics for the patient. He was progressing with his physical therapy and remaining stable and was felt he can be discharged home. Total Time Total Time Spent Total Time Spent (In Minutes): 5 Discharge Plan Discharge Items Patient Disposition: Home - Home Health Services Reason For Visit: INFECTED TOTAL LEFT KNEE (DRAINAGE) Discharge Diagnosis: Infected Left TKA Condition on Discharge: Good Goals: You have been hospitalized for an urgent problem which required surgery. During your stay at [facility], we have made an effort to correct the problem that brought you to the hospital while keeping you as comfortable as possible. Surgery and medications were used to bring your condition under control and your discharge instructions will include directions for any med ications you should take after leaving the hospital. Please make sure to follow the advice of your surgeon regarding follow up with the surgeon and with your primary care provider. Activity: Per Instructions section Weightbearing: Left weightbearing Weightbearing Comment: as tolerated with immobilizer on at all times when ambulating. Non-emergency contact: Surgeon Call non-emergency contact if: your pain is not controlled, your temperature is above 101.5 and your wound has increased redness Follow-up/Referrals: Sydnie Lind DO [Physician] - 12/25/19 10:00 am Carlitos Arce DO [Surgeon] - 12/21/19 2:00 pm (APPT WITH OTTONIEL HYMAN,PAC Patient is the only one allowed into office, due to visiting restrictions. If you have a fever, cough or difficult breathing please call [phone] to reschedule appointment.) Benjie Merida, [Primary Care Provider] - Diet: Regular Addtl Attending Provider Instructions: ACTIVITY RECOMMENDATIONS: SELF CARE INSTRUCTIONS AFTER TOTAL KNEE REPLACEMENT A. You may need to continue a physical therapy program after discharge from the hospital. There are several options available to you. Your doctor will assist you in selecting the best one for you. 1. An out-patient facility 2 to 3 times a week for therapy or home therapy. 2. Continue working on all exercises taught to you in the hospital. 3. Use the immobilizer at all times when ambulating. You may remove to bathe or change clothes. Ok to loosen while in bed. It is advised to sleep with the immobilizer on at night in case you have to get up to the bathroom in a hurry. 4. NO BENDING OF THE KNEE A THIS TIME. B. You may progress at your own pace from walking with a walker or crutches to a cane; then to no assistive devices. C. Make walking a part of your daily routine. Be up as much as comfortable with rest periods throughout the day. Rest with leg elevation is very important. Use the ice wrap frequently for the first 3-4 weeks. D. There are no restrictions on activities. You may ride in a car, shop, participate in supervisor communications and signals and all social activities. E. Wear the long elastic stockings (SUPRIYA hose) 20 hours a day for 2 weeks after surgery. They can be removed several times a day for laundering and for a bath. F. You may shower, no tub baths until cleared by your doctor. SPECIAL CARE INSTRUCTIONS: VERY IMPORTANT TO READ AND REVIEW YOU WILL BE RECEIVIING DAILY IV ANTIBIOTICS FOR 6-[address] LIND'S RECOMMENDATIONS. YOU WILL ALSO HAVE WEEKLY LAB DRAWS DONE BY HOME [facility] SERVICES. THESE RESULTS WILL BE SENT TO DR LIND /DR ARCE. IF ANY CHANGES IN YOUR ANTIBIOTICS ARE NEEDED, YOU WILL BE NOTIFIED. A. There are a few signs you need to watch for after you are home. Call [facility] if you notice any of the followin. Increased severe knee pain. Some pain is expected especially when you exercise. 2. Increased swelling in your leg or knee; pain or swelling of the calf muscle in either lower leg. 3. Any fluid drainage from the incision. 4. Shortness of breath or chest pain. B. Please call [facility] at if you have any concerns or questions about your operation or recovery. The doctor or his nurse will return your call promptly. C. You must take antibiotics before dental work, bladder, bowel or other surgery. Your doctor will provide you with a permanent care to carry describing this precaution. IMPORTANT: * REMEMBER TO TAKE ASPIRIN, 81 MG, TWICE DAILY FOR 4 WEEKS UNLESS OTHERWISE DIRECTED. THIS IS YOUR BLOOD THINNER. * CALL IF INCREASED PAIN, REDNESS, DRAINAGE OR FEVER GREATER THAT 101. * WEAR SUPRIYA HOSE 20 HOURS PER DAY FOR 2 WEEKS. RUKHSANA - This is a large suction dressing covering your incision. This will help pull any excess drainage from the wound and allow your incision to heal properly. You may shower with this if you can keep the unit outside of the shower. If any bleeding or leakage is noted please call your doctor's office. This will remain on your incision for 7 days and then should be removed. This can be done yourself or by the home nursing staff if applicable. The entire unit is disposable once removed. Once removed, keep incision clean and dry. If redness or drainage is noted, please call your surgeon. . Please call the office with any questions you may have. FOLLOW UP VISIT: If appointment is not already scheduled: Please call [facility] to make a follow-up appointment for 2 weeks after your surgery at . Follow up with Dr Lind in 2 weeks (Infectious Disease Specialist) Stand-Alone Forms: My [facility], Opioid Pain Management, Work/School Release (Inpt), Smoking Cessation Medications and DC Order Prescriptions: New aspirin 81 mg Tablet,Delayed Release (Dr/Ec) 81 mg PO BID 30 Days Qty: 60 RF: 0 acetaminophen 500 mg Tablet 1,000 mg PO Q8 14 Days Qty: 84 RF: 0 oxycodone 5 mg Tablet 5 mg PO Q4H PRN (Reason: pain) Qty: 30 RF: 0 sennosides [Senokot] 8.6 mg Tablet 17.2 mg PO HS Qty: 30 RF: 0 ceftriaxone 2 gram recon soln 2 gm IV DAILY 42 Days Qty: 10 RF: 0 Continued ferrous sulfate [iron] 325 mg (65 mg iron) Tablet 325 mg PO DAILY RF: 0 folic acid 1 mg Tablet 1 mg PO DAILY RF: 0 calcium carbonate [Tums] 200 mg calcium (500 mg) Tablet,Chewable 200 mg PO UD PRN (Reason: Acid Reflux) RF: 0 Discontinued omega [id number]-yjd-fish oil [Fish Oil] 1,000 mg (120 mg-180 mg) Capsule 1 cap PO DAILY RF: 0 oxycodone 5 mg Tablet 5 - 10 mg PO Q6H PRN (Reason: pain) Qty: 30 RF: 0 Discharge Orders: Discharge Order (Routine); Ordered 12/11/19 Ordered By: Alfred Kennedy/Other Patient Handouts: Knee How Works, Peripherally Inserted Central Catheter PICC Admission Data Admit Date/Time: 12/07/19 10:09 Attending Provider: Carlitos Arce Admit Provider: Carlitos Arce Primary Care Provider: Benjie Merida Other Providers: Sydnie Lind ; Rock Garcia Other Interventions: Discharge Summary Assessment (RN) Last Done: 12/11/19 13:30 DC Date/Time DO NOT enter until pt leaves facility: 12/11/19 14:51
--- NOTE | 2019-12-15 13:59 | Coding Query ---
ANEMIA To promote full compliance with coding requirements relating to patient care, physician participation is requested in all cases of remote medical coder uncertainty. Please assist us with the question(s) below: Coding Question(s): The record specifies anemia if known please document type below If these findings are indicative of anemia, please specify the known or suspected type by placing an "X" within the parenthesis (x). If other, please document type. Examples are: ) Acute blood loss anemia (x ) Acute Postoperative blood loss anemia ( ) Acute postoperative anemia due to dilutional fluids ( ) Chronic blood loss anemia ( ) Anemia of chronic disease ( ) Aplastic anemia ( ) Anemia due to renal disease ( ) Anemia in neoplastic disease ( ) Iron deficient anemia ( ) Anemia, unspecified or other ( ) Other: (please specify) ( ) Unable to determine Thank you Leonor TUBBS
== END 2019-12-11 14:51 | disposition home health service (06) | DRG 464 ==
LOC: 3W 10:09